=== PATIENT | female | born 1975 | race Caucasian/White ===

== ENCOUNTER → 2016-05-02 | Outpatient (CLI) | payer BC ==
[~2016-05-02] MED LIST: ACHYD1T PO; DCS100C PO; IBP800T PO; NITR100C3 PO; OXYC-12 PO; PANT20TA2 PO; PREN1TAB39 PO; SUCR1TAB23 PO; TRAM50TA2 PO
--- NOTE | 2016-05-02 15:55 | Diagnostic Imaging Report ---
INDICATION: Pelvic pain. TECHNIQUE: Multiple real time good scale sonographic images were obtained of the pelvis transabdominally and endovaginally. CORRELATION STUDY: None. FINDINGS: UTERUS/ENDOMETRIUM: Uterus measures 8.0 x 4.5 x 4.3 cm. The uterus has an unremarkable appearance. The endometrium is normal in thickness measuring 4 mm. RIGHT OVARY: Not visualized. LEFT OVARY: Not visualized. The ovaries cannot be visualized on either transabdominal and/or endovaginal imaging. This may be owing to location of the ovaries, overlying bowel gas, or on a technical basis. No definitive abnormal adnexal mass lesion on limited assessment. No significant free pelvic fluid. IMPRESSION: 1. Uterus and endometrium are unremarkable. 2. Ovaries were unable to be visualized on either transabdominal or endovaginal imaging. Dictated by: Dictated on workstation # [id number]
== END ==
LOC: RAD 14:05
PROVIDERS: ATTEND Obstetrics & Gynecology
DX: N94.19 Other specified dyspareunia (principal); R10.2 Pelvic and perineal pain; N93.8 Other specified abnormal uterine and vaginal bleeding
CPT/HCPCS: 76830; 76856

== ENCOUNTER 2016-08-09 13:33 | Outpatient (CLI) | payer BC ==
[~2016-08-09] VITALS: Ht 154.9 cm; Wt 98.4 kg
[2016-08-09 13:38] VITALS: BP 132/79
[2016-08-09] MEDS ORDERED: TOPI50TA37 PO (14:11)
[2016-08-09] MEDS ORDERED: SERT50TA2 PO (14:11)
[2016-08-09] MEDS ORDERED: ALPR1TAB2 PO (14:11)
[2016-08-09 14:12] LABS: BASOPHILS # (AUTO) 0.1 10^3/uL (0.0-0.1); BASOPHILS % (AUTO) 1 % (0-10); EOSINOPHILS # (AUTO) 0.2 10^3/uL (0.0-0.3); EOSINOPHILS % (AUTO) 2 % (0-10); LYMPHOCYTES # (AUTO) 3.8 X 10^3 (1.0-4.0); LYMPHOCYTES % (AUTO) 39 % (12-44); MEAN CORPUSCULAR HEMOGLOBIN 30 PG (25-34); MEAN CORPUSCULAR HGB CONC 33 G/DL (32-36); MEAN CORPUSCULAR VOLUME 91 FL (80-99); MEAN PLATELET VOLUME 9.9 FL (7.4-10.4); MONOCYTES # (AUTO) 0.7 X 10^3 (0.0-1.0); MONOCYTES % (AUTO) 8 % (0-12); NEUTROPHILS # (AUTO) 4.9 X 10^3 (1.8-7.8); NEUTROPHILS % (AUTO) 51 % (42-75); PLATELET COUNT 344 10^3/uL (130-400); RED BLOOD COUNT 4.35 10^6/uL (4.35-5.85); RED CELL DISTRIBUTION WIDTH 12.8 % (10.0-14.5); WHITE BLOOD COUNT 9.6 10^3/uL (4.3-11.0)
== END 2016-08-09 14:00 | disposition home or self-care (01) ==
LOC: PREOP 13:33
PROVIDERS: ATTEND Obstetrics & Gynecology
DX: Z01.818 Encounter for other preprocedural examination (principal); Z11.2 Encounter for screening for other bacterial diseases; N80.8 Other endometriosis; N81.10 Cystocele, unspecified; R10.2 Pelvic and perineal pain
CPT/HCPCS: 36415; 85025; 86850; 86900; 86901; 87081

== ENCOUNTER 2016-08-15 06:00 | Day surgery (SDC) | payer BC ==
[~2016-08-15] VITALS: Ht 154.9 cm; Wt 98.4 kg
[~2016-08-15 06:00] MED LIST changes: +ALPR1TAB2 PO; +SERT50TA2 PO; +TOPI50TA37 PO
[2016-08-15 06:25] VITALS: BP 148/79
[2016-08-15] MEDS ORDERED: ONDANSETRON 4 MG/2 ML (SDV) Z0FRAN ONE ×2 (06:37→06:41)
[2016-08-15] MEDS ORDERED: DEXAMETHASONE PF 10 MG/ML (DECADRON) VIAL ONE (06:37)
[2016-08-15] MEDS ORDERED: fentaNYL INJECTION 100 MCG/2 ML AMP ONE (06:37)
[2016-08-15] MEDS ORDERED: LIDOCAINE PF 2% 5 ML (XYLOCAINE) VIAL ONE (06:37)
[2016-08-15] MEDS ORDERED: ROCURONIUM 50 MG/5 ML (ZEMURON) VIAL IV ONE (06:37)
[2016-08-15] MEDS ORDERED: proPOfol 200 MG/20 ML (DIPRIVAN) VIAL IV ONE (06:37)
[2016-08-15] MEDS ORDERED: metroNIDAZOLE 500MG/100ML IVPB 100 ML ONE (06:41)
[2016-08-15] MEDS ORDERED: SCOPOLAMINE 1.5 MG (TRANSDERM-SCOP) PATCH ONE (06:41)
[2016-08-15] MEDS ORDERED: MIDAZOLAM 2 MG/2 ML (VERSED) VIAL ONE (06:41)
[2016-08-15] MEDS ORDERED: ceFAZolin 2 GM/50 ML NS 50 ML ONE (06:42)
[2016-08-15] MEDS ORDERED: FAMOTIDINE 20MG/2ML IV (PEPCID) ONE (06:42)
[2016-08-15] MEDS ORDERED: SEVOFLURANE (ULTANE) 15 ML INHAL SOLN ONE ×7 (06:48→09:11)
[2016-08-15] MEDS: LACTATED RINGERS 1,000 ML IV PRN ×2 (06:58→07:35)
[2016-08-15] MEDS ORDERED: ceFAZolin 2 GM/NS 50 ML IV ONE (07:00)
[2016-08-15] MEDS ORDERED: SCOPOLAMINE 1.5 MG (TRANSDERM-SCOP) PATCH TOP ONE (07:00)
[2016-08-15] MEDS ORDERED: MIDAZOLAM 2 MG/2 ML (VERSED) VIAL IV ONE (07:00)
[2016-08-15] MEDS ORDERED: FAMOTIDINE 20MG/2ML IV (PEPCID) IV ONE (07:00)
[2016-08-15] MEDS ORDERED: ONDANSETRON 4 MG/2 ML (SDV) Z0FRAN IV ONE (07:00)
[2016-08-15] MEDS ORDERED: metroNIDAZOLE 500 MG/100 ML IVPB (PRE-MIX) IV ONE (07:00)
[2016-08-15] MEDS ORDERED: BUPIVACAINE 0.25% 30 ML (SENSORCAINE) VIAL ONE (07:01)
[2016-08-15] MEDS ORDERED: VASOPRESSIN INJECTION 20 UNIT/ML VIAL ONE (07:03)
[2016-08-15] MEDS ORDERED: NS (IVPB) 100 ML ONE (07:03)
[2016-08-15] MEDS ORDERED: ESTROGENS CONJ. CREAM 30 GM (PREMARIN) TUBE ONE (07:03)
--- NOTE | 2016-08-15 07:07 | Progress Note-Pre Operative ---
Pre-Operative Progress Note H&P Reviewed The H&P was reviewed, patient examined and no changes noted. Date Seen by Provider: Aug 15, 2016 Time Seen by Provider: 07:06 Date H&P Reviewed: Aug 15, 2016 Time H&P Reviewed: 07:05 Pre-Operative Diagnosis: CPP, Endometriosis, Cystocele BETHANY RAMOS DO Aug 15, 2016 7:07 am
[2016-08-15] MEDS ORDERED: morphine INJ 10 MG/ML 1ML (SYR OR VIAL) ONE (09:04)
[2016-08-15] MEDS ORDERED: KETOROLAC 30 MG/ML VIAL ONE (09:04)
--- NOTE | 2016-08-15 09:13 | Discharge Inst-Women's Service ---
Discharge Inst-Women's Serv Depart Medication/Instructions New, Converted or Re-Newed RX: RX on Chart Consults/Follow Up Additional Follow Up: Yes Activity Activity: Activity as Tolerated Driving Instructions: No Driving for 1 Week NO SMOKING: NO SMOKING Nothing Inside Vagina: No Douching, No [place], No Tampons Diet Discharge Diet: No Restrictions Symptoms to Report to : Bleeding Excessive, Pain Increased, Fever Over 101 Degrees F, Vaginal Bleeding Increase, Questions/Concerns For Any Problems or Questions: Contact Your Physician Skin/Wound Care Infection Signs and Symptoms: Increased Redness, Foul Odor of Wound, Increased Drainage, Skin Itchy or Has a Rash, Increased Swelling, Temperature Above 101 F Operative Area Clean and Dry: Keep Incision Clean/Dry Stitches/[place]/Dermabond: Dermabond, Care of Stitches Bathing Instructions: Shower (x 3 weeks) BETHANY RAMOS DO Aug 15, 2016 9:13 am
[2016-08-15] MEDS ORDERED: CHLORASEPTIC LOZENGE MM PRN (09:15)
[2016-08-15] MEDS ORDERED: ONDANSETRON 4 MG/2 ML (SDV) Z0FRAN IVP PRN (09:15)
[2016-08-15] MEDS ORDERED: ZOLPIDEM 5 MG (AMBIEN) TAB PO PRN (09:15)
[2016-08-15] MEDS ORDERED: ANTACID SUSP 30 ML UDC (MYLANTA) PO PRN (09:15)
[2016-08-15] MEDS ORDERED: HYDR-3816 PO (09:26)
[2016-08-15] MEDS ORDERED: DOCU100C37 PO (09:26)
[2016-08-15] MEDS ORDERED: IBUP-1773 PO (09:26)
[2016-08-15] MEDS ORDERED: SIME80TA16 PO (09:26)
[2016-08-15] MEDS: morphine INJ 10 MG/ML 1ML (SYR OR VIAL) IVP PRN ×2 (09:30→09:34)
[2016-08-15] MEDS: KETOROLAC 30 MG/ML VIAL IV PRN ×3 (09:36→23:59)
--- NOTE | 2016-08-15 09:39 | Progress Note-Post Operative ---
Post-Operative Progess Note Surgeon (s)/Aerospace Engineer Officer Armament (s) Surgeon BETHANY RAMOS DO Aerospace Engineer Officer Armament: Lakshmi Kelley Pre-Operative Diagnosis CPP, Endometriosis, Cystocele Post-Operative Diagnosis same Procedure & Operative Findings Date of Procedure 08/15/16 Procedure Performed/Findings Urine output 50 ML's Fluids 1400 mL lactate Ringer's solution Findings: A normal-size uterus is hyperemic with dense anterior cul-de-sac adhesions. Grossly normal-appearing bilateral ovaries. Grade 2 cystocele Procedure in detail: The patient taken the operating room where general anesthesia was found to be adequate. She is placed in dorsal lithotomy position prepped and draped in normal sterile fashion. She is first examined under anesthesia the uterus is fixed anteverted, no adnexal masses are appreciated. A weighted speculum was inserted patient's vagina after Justin catheter is placed using sterile technique. A right angle retractor is used to visualize the cervix. This grasped at the 12 o'clock position using a long Allis clamp. A 0 Vicryl sutures placed the anterior lip of the cervix and uses my retraction point. The Allises removed. I didn't send uterine cavity depth which is found to be 8 cm. I selected a 8 cm Rukhsana uterine manipulator tip, and a 3 cm colpotomy ring. The remaining is and placed into the endometrial cavity the balloon was deployed and the colpotomy ring is advanced around the vaginal fornix. I then removal all of the other instruments from the patient's vagina and taken back into the abdomen where infraumbilically I infiltrated 0 using quarter percent Marcaine and make an 8 mm incision using the knife. I directed varies needle through this incision until intraperitoneal placement was confirmed using a saline drop test. An opening pressure of 4 mmHg is noted using CO2 gas I insufflate the peritoneal cavity to a pressure of 15 mmHg at which point I removed the varies needle and introduce an 8 mm blunt da Vicente camera trocar. Once this is in place unable to confirm intraperitoneal placement using the da Vicente laparoscope. I then had the patient placed in steep Trendelenburg and am able to visualize all of the adequate structures to perform the procedure as planned. There is no evidence of damage upon my entry site. I then direct 2 more trochars through the abdominal wall using both 8 mm trochars placed approximately 10 cm lateral to my infraumbilical trocar. Incisions are made using the knife, and the trochars are directed under direct visualization of the laparoscope. Once these are in place I bring in the da Vicente robot and docked in appropriate fashion. I placed the vessel sealer and the left and monopolar viktor in the right hand. I then performed the following dissection bilaterally. Starting at the IP ligament I bipolar cauterized this and transected using the vessel sealer. I then grasped the round ligament bipolar cauterized this and transected using the vessel sealer. Anatomy able to grasp the entire broad ligament bipolar cauterized and transected using the vessel sealer down to the level of the lower uterine segment. At this point a separate anterior posterior leaflets, the anterior leaf was taken around to the anterior vaginal fornix, and the posterior leaflets taken onto the posterior vaginal fornix. This allows me to visualize the uterine vessels laterally which I bipolar cauterized and transected using the vessel sealer. I did perform a colpotomy at the 12 o'clock position using monopolar viktor were unable to visualize the Rukhsana colpotomy ring. I take this incision circumferentially around the colpotomy ring using the monopolar viktor amputating the cervix with the vaginal fornix. The entire specimen was then removed through the vagina. I then proceeded to closing the vaginal cuff and the lateral vaginal apices i use 2-0 Vicryl suture in a [id number] fashion couple suspending them to the uterosacral ligaments. I then closed the remainder the vaginal cuff using 20V lock in a running fashion. There is no active bleeding noted from any my dissection planes at which point I undocked the da Vicente robot and proceed with the remainder of the case laparoscopically. Once again I copiously irrigated the pelvis using normal saline as no active bleeding noted I placed FloSeal hemostatic agent overall my planes of dissection to ensure excellent postoperative hemostasis. I then had the patient flattened out and remove the lateral trochars under direct visualization of the laparoscope. The infraumbilical trocar is used to release insufflation, and introduce 10 mL's of 0.25% Marcaine into the peritoneal cavity for postoperative pain management. The skin incisions are then closed using 4-0 Monocryl and interrupted subcuticular stitches and Dermabond and Band- Aids are placed over these. I then take my attention to the pelvis where there is still significant cystocele. I infiltrated the margins of the cystocele using vasopressin a concentration of 20 ML's and 100 mL's of normal saline, I then make an incision at the bladder neck getting just beneath the submucosa. I then used Metzenbaum scissors to go down the midline of the cystocele defect and undermined this tissue staying clear of the bladder. I then take this incision down the midline. This allows me to bluntly dissect the vesicovaginal fascia off of the submucosa of the underlying tissue. I then used plicating 2-0 Vicryl sutures in interrupted fashion reducing the remaining cystocele. I trimmed the excess vaginal mucosa and closed the mucosa using 3-0 Vicryl suture in a running locked fashion. The vagina is in packed using Premarin-soaked vaginal packing. Justin catheter was left in place. 2 g of Ancef and 500 mg of Flagyl given preoperatively for infection prophylaxis. The patient tolerated the procedure well as taken to recovery in stable condition. Lap and sponge count is correct at end of the procedure, instrument count is correct as well. Anesthesia Type GETA Estimated Blood Loss Estimated blood loss (mL): 50 Specimens/Packing Specimens Removed uterus tubes ovaries RICHARDBETHANY Haresh CLAUDIO Aug 15, 2016 9:39 am
--- OUTSIDE RECORDS SUMMARY | 2016-08-15 10:19 | XMS REPORT ---
Author Author CECI CROUCH Organization [employer] Address Unknown Phone Unavailable Care Team Providers Care Health Navigator Name Role Phone CECI CROUCH CP Unavailable Allergies, Adverse Reactions, Alerts Substance Reaction Event Type N.K.D.A. Info Not Available Non Drug Allergy Problems Problem Type Condition Code Onset Dates Condition Status Assessment Dental examination Z01.20 Active Medications Medication Code System Code Instructions Start Date End Date Status Dosage [facility] [address]-48 5-325 MG Orally every 6 hrs Nov 24, 2014 Nov 28, 2014 1 tablet as needed Procedures Procedure Coding System Code Date INTRAORL-PERIAPICAL 1 FILM 44382 CPT-4 D0220 Nov 24, 2014 BITEWING - SINGLE FILM CPT-4 D0270 Nov 24, 2014 LTD ORAL EVALUATION - PROBLEM FOCUS CPT-4 D0140 Nov 24, 2014 EXTRAC ERUPTED TOOTH/EXPOSED ROOT CPT-4 D7140 Nov 24, 2014 Vital Signs Date/Time: Nov 24, 2014 Blood Pressure Diastolic 91 mmHg Blood Pressure Systolic 132 mmHg Results No Known Results Summary Purpose [employer] Submission
--- OUTSIDE RECORDS SUMMARY | 2016-08-15 10:19 | XMS REPORT | Continuity of Care Document ---
Author Author [facility] Organization [facility] Address Unknown Phone Unavailable Allergies Active Description Code Type Severity Reaction Onset Reported/Identified Relationship to Patient Clinical Status Yes Penicillins [id number] Drug Allergy Unknown N/A 06/19/2011 Medications Problems Date Dx Coded Attending Type Code Diagnosis Diagnosed By 05/22/2011 Ot 644.03 THRT KRANTHI LABOR-ANTEPART 06/22/2011 Ot 530.81 ESOPHAGEAL REFLUX 06/22/2011 Ot 644.21 EARLY ONSET DELIVERY-DEL 06/22/2011 Ot 648.91 OTH CURR COND-DELIVERED 06/22/2011 Ot 654.21 PREV DELIVRY W/ OR W/O MENT ANT 06/22/2011 Ot 782.1 NONSPECIF SKIN ERUPT NEC 06/22/2011 Ot V06.1 [id number], COMBINED [ 06/22/2011 Ot V27.0 DELIVER-SINGLE LIVEBORN 08/11/2013 MANISH RIOS, DAVE Ureña Ot 786.50 CHEST PAIN NOS 08/11/2013 MANISH RIOS, DAVE Ureña Ot 789.00 ABDOMINAL PAIN, UNSPECIFIED SITE 04/06/2014 Ot 455.0 INT HEMORRHOID W/O COMPL 04/06/2014 Ot 530.11 REFLUX ESOPHAGITIS 04/06/2014 Ot 535.50 UNSP GASTRITIS GASTRODUODENITIS W/O ME 04/06/2014 Ot 553.3 DIAPHRAGMATIC HERNIA 04/06/2014 Ot 569.3 RECTAL ANAL HEMORRHAGE 04/28/2014 Ot 575.11 CHRONIC CHOLECYSTITIS 04/28/2014 Ot 575.6 GB CHOLESTEROLOSIS 05/03/2014 Ot 518.0 PULMONARY COLLAPSE 05/03/2014 Ot 786.50 CHEST PAIN NOS 05/27/2014 Ot 575.8 05/27/2014 Ot 575.8 05/27/2014 Ot V72.63 05/27/2014 Ot V74.8 05/27/2014 Ot 786.05 05/27/2014 Ot 786.50 06/07/2014 KIMBER SMITH MD Ot V72.84 06/29/2014 Ot 786.05 06/29/2014 Ot 786.50 06/29/2014 Ot 786.05 06/29/2014 Ot 786.50 06/29/2014 Ot 575.8 08/10/2014 Ot 786.05 08/10/2014 Ot 786.50 08/10/2014 Ot 575.8 08/15/2014 Ot 575.8 08/15/2014 Ot 786.05 08/15/2014 Ot 786.50 02/20/2015 Ot 785.1 02/20/2015 Ot 780.4 02/20/2015 Ot 785.1 02/20/2015 Ot 786.50 02/20/2015 Ot 729.5 02/20/2015 SAMANTHA RIOS, LORI Nuñez Ot 789.06 02/20/2015 KIMBER SMITH MD Ot V72.84 02/20/2015 Ot 575.8 02/20/2015 Ot 575.8 02/20/2015 Ot V72.63 02/20/2015 Ot V74.8 02/20/2015 Ot 786.05 02/20/2015 Ot 786.50 12/25/2015 Ot 785.1 PALPITATIONS 12/25/2015 Ot 780.4 DIZZINESS AND GIDDINESS 12/25/2015 Ot 785.1 PALPITATIONS 12/25/2015 Ot 786.50 CHEST PAIN NOS 12/25/2015 Ot 729.5 PAIN IN LIMB 12/25/2015 SAMANTHA RIOS, LORI Nuñez Ot 789.06 ABDOMINAL PAIN, EPIGASTRIC 12/25/2015 LUIS RIOS, KIMBER Ot V72.84 EXAM PRE-OPERATIVE NOS 12/25/2015 Ot 575.8 DIS OF GALLBLADDER NEC 12/25/2015 Ot 575.8 DIS OF GALLBLADDER NEC 12/25/2015 Ot V72.63 PRE-PROCEDURAL LABORATORY EXAMINATION 12/25/2015 Ot V74.8 SCREEN-BACTERIAL DIS NEC 12/25/2015 Ot 786.05 SHORTNESS OF BREATH 12/25/2015 Ot 786.50 CHEST PAIN NOS 03/09/2016 Ot 785.1 PALPITATIONS 03/09/2016 Ot 780.4 DIZZINESS AND GIDDINESS 03/09/2016 Ot 785.1 PALPITATIONS 03/09/2016 Ot 786.50 CHEST PAIN NOS 03/09/2016 Ot 729.5 PAIN IN LIMB 03/09/2016 OLRI SINGH MD Ot 789.06 ABDOMINAL PAIN, EPIGASTRIC 03/09/2016 KIMBER SMITH MD Ot V72.84 EXAM PRE-OPERATIVE NOS 03/09/2016 Ot 575.8 DIS OF GALLBLADDER NEC 03/09/2016 Ot 575.8 DIS OF GALLBLADDER NEC 03/09/2016 Ot V72.63 PRE-PROCEDURAL LABORATORY EXAMINATION 03/09/2016 Ot V74.8 SCREEN-BACTERIAL DIS NEC 03/09/2016 Ot 786.05 SHORTNESS OF BREATH 03/09/2016 Ot 786.50 CHEST PAIN NOS 03/11/2016 Ot 785.1 PALPITATIONS 03/11/2016 Ot 780.4 DIZZINESS AND GIDDINESS 03/11/2016 Ot 785.1 PALPITATIONS 03/11/2016 Ot 786.50 CHEST PAIN NOS 03/11/2016 Ot 729.5 PAIN IN LIMB 03/11/2016 SAMANTHA RIOS, LORI Nuñez Ot 789.06 ABDOMINAL PAIN, EPIGASTRIC 03/11/2016 KIMBER SMITH MD Ot V72.84 EXAM PRE-OPERATIVE NOS 03/11/2016 Ot 575.8 DIS OF GALLBLADDER NEC 03/11/2016 Ot 575.8 DIS OF GALLBLADDER NEC 03/11/2016 Ot V72.63 PRE-PROCEDURAL LABORATORY EXAMINATION 03/11/2016 Ot V74.8 SCREEN-BACTERIAL DIS NEC 03/11/2016 Ot 786.05 SHORTNESS OF BREATH 03/11/2016 Ot 786.50 CHEST PAIN NOS 03/15/2016 Ot 785.1 PALPITATIONS 03/15/2016 Ot 780.4 DIZZINESS AND GIDDINESS 03/15/2016 Ot 785.1 PALPITATIONS 03/15/2016 Ot 786.50 CHEST PAIN NOS 03/15/2016 Ot 729.5 PAIN IN LIMB 03/15/2016 LORI SINGH MD Ot 789.06 ABDOMINAL PAIN, EPIGASTRIC 03/15/2016 KIMBER SMITH MD Ot V72.84 EXAM PRE-OPERATIVE NOS 03/15/2016 Ot 575.8 DIS OF GALLBLADDER NEC 03/15/2016 Ot 575.8 DIS OF GALLBLADDER NEC 03/15/2016 Ot V72.63 PRE-PROCEDURAL LABORATORY EXAMINATION 03/15/2016 Ot V74.8 SCREEN-BACTERIAL DIS NEC 03/15/2016 Ot 786.05 SHORTNESS OF BREATH 03/15/2016 Ot 786.50 CHEST PAIN NOS 03/21/2016 Ot 785.1 PALPITATIONS 03/21/2016 Ot 780.4 DIZZINESS AND GIDDINESS 03/21/2016 Ot 785.1 PALPITATIONS 03/21/2016 Ot 786.50 CHEST PAIN NOS 03/21/2016 Ot 729.5 PAIN IN LIMB 03/21/2016 LORI SINGH MD Ot 789.06 ABDOMINAL PAIN, EPIGASTRIC 03/21/2016 LUIS RIOS, KIMBER Ot V72.84 EXAM PRE-OPERATIVE NOS 03/21/2016 Ot 575.8 DIS OF GALLBLADDER NEC 03/21/2016 Ot 575.8 DIS OF GALLBLADDER NEC 03/21/2016 Ot V72.63 PRE-PROCEDURAL LABORATORY EXAMINATION 03/21/2016 Ot V74.8 SCREEN-BACTERIAL DIS NEC 03/21/2016 Ot 786.05 SHORTNESS OF BREATH 03/21/2016 Ot 786.50 CHEST PAIN NOS 05/02/2016 FENECH DO, BETHANY S Ot N93.8 OTHER SPECIFIED ABNORMAL UTERINE AND VAG 05/02/2016 FENECH DO, BETHANY S Ot N94.19 OTHER SPECIFIED DYSPAREUNIA 05/02/2016 FENECH DO, BETHANY S Ot R10.2 PELVIC AND PERINEAL PAIN 05/03/2016 FENECH DO, BETHANY S Ot N93.8 OTHER SPECIFIED ABNORMAL UTERINE AND VAG 05/03/2016 FENECH DO, BETHANY S Ot N94.19 OTHER SPECIFIED DYSPAREUNIA 05/03/2016 FENECH DO, BETHANY S Ot R10.2 PELVIC AND PERINEAL PAIN 05/15/2016 FENECH DO, BETHANY S Ot N93.8 OTHER SPECIFIED ABNORMAL UTERINE AND VAG 05/15/2016 FENECH DO, BETHANY S Ot N94.19 OTHER SPECIFIED DYSPAREUNIA 05/15/2016 HARPREETECH DO, BETHANY S Ot R10.2 PELVIC AND PERINEAL PAIN 08/08/2016 Ot 785.1 PALPITATIONS 08/08/2016 Ot 780.4 DIZZINESS AND GIDDINESS 08/08/2016 Ot 785.1 PALPITATIONS 08/08/2016 Ot 786.50 CHEST PAIN NOS 08/08/2016 Ot 729.5 PAIN IN LIMB 08/08/2016 LORI SINGH MD Ot 789.06 ABDOMINAL PAIN, EPIGASTRIC 08/08/2016 LUIS RIOS, KIMBER Ot V72.84 EXAM PRE-OPERATIVE NOS 08/08/2016 Ot 575.8 DIS OF GALLBLADDER NEC 08/08/2016 Ot 575.8 DIS OF GALLBLADDER NEC 08/08/2016 Ot V72.63 PRE-PROCEDURAL LABORATORY EXAMINATION 08/08/2016 Ot V74.8 SCREEN-BACTERIAL DIS NEC 08/08/2016 Ot 786.05 SHORTNESS OF BREATH 08/08/2016 Ot 786.50 CHEST PAIN NOS 08/08/2016 HARPREETGUSTAVO CLAUDIO BETHANY Haresh Ot N93.8 OTHER SPECIFIED ABNORMAL UTERINE AND VAG 08/08/2016 HARPREETBETHANY CHEN DO Ot N94.19 OTHER SPECIFIED DYSPAREUNIA 08/08/2016 HARPREETGUSTAVO CLAUDIO BETHANY Haresh Ot R10.2 PELVIC AND PERINEAL PAIN Procedures Code Description Performed By Performed On 74.1 LOW CERVICAL 06/19/2011 Results Test Result Range Complete blood count (CBC) with automated white blood cell (WBC) differential - 08/09/16 13:52 Blood leukocytes automated count (number/volume) 9.6 10*3/ uL 4.3-11.0 Blood erythrocytes automated count (number/volume) 4.35 10*6 /uL 4.35-5.85 Venous blood hemoglobin measurement (mass/volume) 13.2 g/dL 11.5-16.0 Blood hematocrit (volume fraction) 40 % 35-52 Automated erythrocyte mean corpuscular volume 91 [foz_us] 80-99 Automated erythrocyte mean corpuscular hemoglobin (mass per erythrocyte) 30 pg 25-34 Automated erythrocyte mean corpuscular hemoglobin concentration measurement ( mass/volume) 33 g/dL 32-36 Automated erythrocyte distribution width ratio 12.8 % 10.0-14.5 Automated blood platelet count (count/volume) 344 10*3/uL 130-400 Automated blood platelet mean volume measurement 9.9 [foz_us ] 7.4-10.4 Automated blood neutrophils/100 leukocytes 51 % 42-75 Automated blood lymphocytes/100 leukocytes 39 % 12-44 Blood monocytes/100 leukocytes 8 % 0-12 Automated blood eosinophils/100 leukocytes 2 % 0-10 Automated blood basophils/100 leukocytes 1 % 0-10 Blood neutrophils automated count (number/volume) 4.9 10*3 1.8-7.8 Blood lymphocytes automated count (number/volume) 3.8 10*3 1.0-4.0 Blood monocytes automated count (number/volume) 0.7 10*3 0.0-1.0 Automated eosinophil count 0.2 10*3/uL 0.0-0.3 Automated blood basophil count (count/volume) 0.1 10*3/uL 0.0-0.1 Blood type T Indirect antibody screen panel - 08/09/16 13:52 ABO+Rh group AP NRG Blood group antibody screen NEGATIVE NRG Methicillin resistant Staphylococcus aureus (MRSA) screening culture - 13:52 MRSA SCREEN RESULT MRSA ISOLATED NRG Encounters ACCT No. Visit Date/Time Discharge Status Pt. Type Provider Facility Loc./Unit Complaint [id number] 08/09/2016 13:33:00 2016 14:00:00 DIS Outpatient BETHANY RAMOS DO [facility] PREOP ROBOTIC HYST [id number] 03/31/2014 06:14:00 2014 23:59:59 CLS Outpatient KIMBER SMITH MD [facility] PREOP ABD PAIN; BLOOD IN STOOLS [id number] 08/17/2013 09:57:00 2013 23:59:59 CLS Outpatient LORI SIGNH MD [facility] RAD EPIGASTRIC PAIN [id number] 08/11/2013 17:42:00 2013 19:46:00 DIS Emergency DAVE HAMMOND MD [facility] ER CHEST PAIN [id number] 08/15/2016 07:30:00 PEN Preadmit BETHANY RAMOS DO [facility] SDC CHRONIC PELVIC PAIN, ENDOMETRIOSIS, CYSTOCELE [id number] 05/02/2016 14:05:00 ACT Outpatient BETHANY RAMOS DO [facility] RAD AUB,ACUTE PELVIC PAIN [id number] 05/27/2014 17:02:00 Document Registration [id number] 05/03/2014 18:00:00 Document Registration [id number] 04/28/2014 09:00:00 Document Registration [id number] 04/21/2014 14:06:00 Document Registration [id number] 04/19/2014 09:24:00 Document Registration [id number] 04/06/2014 08:05:00 Document Registration [id number] 06/28/2011 10:36:00 Document Registration [id number] 06/19/2011 08:19:00 Document Registration [id number] 05/22/2011 15:14:00 Document Registration [id number] 03/20/2011 10:31:00 Document Registration [id number] 02/27/2011 14:40:00 Document Registration
[2016-08-15 10:20] VITALS: BP 109/70
[2016-08-15 10:50] VITALS: BP 106/68
[2016-08-15] MEDS: ONDANSETRON 4 MG/2 ML (SDV) Z0FRAN IV PRN (11:07)
[2016-08-15] MEDS ORDERED: PROMETHAZINE INJ 25 MG/ML (PHENERGAN) AMP ONE (11:36)
[2016-08-15] MEDS ORDERED: HYDROmorphone (DILAUDID) 2 MG/ML VIAL IVP PRN (11:45)
[2016-08-15] MEDS ORDERED: PROMETHAZINE INJ 25 MG/ML (PHENERGAN) AMP IVP ONE (12:00)
[2016-08-15] MEDS: LACTATED RINGERS 1,000 ML IV SCH ×2 (13:35→21:50)
[2016-08-15 16:16] VITALS: BP 101/52
[2016-08-15] MEDS: HYDROcodone/APAP 7.5 MG/325 MG (LORTAB, LORCET PLUS) TABLET PO PRN ×2 (17:58→20:59)
[2016-08-15] MEDS: DOCUSATE SODIUM 100 MG (COLACE) CAP PO PRN (20:59)
[2016-08-15 21:00] VITALS: BP 110/60
[2016-08-16] VITALS: BP 100/61
[2016-08-16] MEDS ORDERED: KETOROLAC 30 MG/ML VIAL ONE (05:06)
[2016-08-16 05:15] VITALS: BP 111/66
[2016-08-16] MEDS: ONDANSETRON 4 MG/2 ML (SDV) Z0FRAN IV PRN (06:05)
[2016-08-16] MEDS: SIMETHICONE 80 MG (MYLICON) CHEW PO PRN (06:06)
[2016-08-16 08:20] VITALS: BP 114/72
[2016-08-16] MEDS: HYDROcodone/APAP 7.5 MG/325 MG (LORTAB, LORCET PLUS) TABLET PO PRN ×3 (08:27→21:23)
[2016-08-16] MEDS: DOCUSATE SODIUM 100 MG (COLACE) CAP PO PRN ×2 (08:27→21:23)
--- NOTE | 2016-08-16 09:19 | Anesthesia-General Post-Op ---
General Patient Condition Mental Status/LOC: Same as Preop Cardiovascular: Satisfactory Nausea/Vomiting: Absent Respiratory: Satisfactory Pain: Controlled Complications: Absent Post Op Complications Complications None Follow Up Care/Instructions Patient Instructions None needed. Anesthesia/Patient Condition Patient Condition Patient is doing well, no complaints, stable vital signs, no apparent adverse anesthesia problems. No complications reported per nursing. [place] [facility] [place] No CHRISTINE BRITO CRNA Aug 16, 2016 09:19
[2016-08-16] MEDS ORDERED: BETHANECHOL 25 MG (URECHOLINE) TAB PO NR (09:45)
[2016-08-16] MEDS: IBUPROFEN 600 MG (MOTRIN) TAB PO PRN (11:21)
[2016-08-16 12:40] VITALS: BP 128/78
[2016-08-16 19:00] VITALS: BP 116/75
[2016-08-16 20:25] VITALS: BP 123/62
[2016-08-16] MEDS ORDERED: BETHANECHOL 10 MG (URECHOLINE) TAB ONE (21:17)
[2016-08-16] MEDS: BETHANECHOL 10 MG (URECHOLINE) TAB PO SCH (21:23)
[2016-08-17 00:10] VITALS: BP 121/76
[2016-08-17] MEDS: IBUPROFEN 600 MG (MOTRIN) TAB PO PRN ×2 (00:17→12:59)
[2016-08-17 04:05] VITALS: BP 94/62
[2016-08-17] MEDS ORDERED: BETHANECHOL 10 MG (URECHOLINE) TAB ONE (06:38)
[2016-08-17] MEDS: BETHANECHOL 10 MG (URECHOLINE) TAB PO SCH (06:52)
--- NOTE | 2016-08-17 08:18 | Progress Note-Standard ---
Standard Progress Note Progress Notes/Assess & Plan Date Seen by Provider: Aug 17, 2016 Time Seen by Provider: 08:15 Progress/Assessment & Plan Patient was ordered for discharge yesterday, however, after felipe removed she was unable to void. Attempts were made by giving bethacholine, and PVR still remained about 200 and one time was as high as 450. Otherwise the patient is doing well, pain well controlled. Ambulating and eating without difficulty. Vital Sign - Last 24 Hours 08/16/16 08/16/16 08/16/16 08/16/16 08:20 12:40 19:00 20:25 Temp 98.7 98.3 97.8 97.9 Pulse 95 93 97 92 Resp 18 20 20 17 B/P (MAP) 114/72 128/78 116/75 123/62 Pulse Ox 97 99 99 95 O2 Delivery Room Air Room Air Room Air Room Air 08/17/16 08/17/16 00:10 04:05 Temp 98.9 97.0 Pulse 95 70 Resp 18 18 B/P (MAP) 121/76 94/62 Pulse Ox 94 96 O2 Delivery Room Air Room Air Intake and Output 08/16/16 08/16/16 08/17/16 15:00 23:00 07:00 Intake Total 1000 ml 700 ml Output Total 175 ml 1550 ml Balance 825 ml -850 ml Incisions: c/d/i Urine in catheter this morning is clear Scant vaginal bleeding Diagnosis: PO from [facility] with BSO and Ant colporraphy PO urinary retention BMI 41 P: Bethachol 10 mg TID x 5 days, and patient given urinary retention precautions Continue routine PO precautions Will plan for dc today pending normal PVRs BETHANY RAMOS DO Aug 17, 2016 8:18 am
[2016-08-17] MEDS ORDERED: BETH10TA PO (08:19)
[2016-08-17] MEDS: HYDROcodone/APAP 7.5 MG/325 MG (LORTAB, LORCET PLUS) TABLET PO PRN ×2 (09:02→15:02)
[2016-08-17] MEDS: DOCUSATE SODIUM 100 MG (COLACE) CAP PO PRN (09:02)
[2016-08-17 09:05] VITALS: BP 126/77
[2016-08-17] MEDS ORDERED: BETHANECHOL 10 MG (URECHOLINE) TAB PO SCH (11:57)
[2016-08-17] MEDS: SIMETHICONE 80 MG (MYLICON) CHEW PO PRN (12:59)
[2016-08-17 13:00] VITALS: BP 119/79
== END 2016-08-17 18:07 | disposition home or self-care (01) ==
LOC: SDC 06:00 → WS 10:20 → SDC 08-17 18:07
PROVIDERS: ATTEND Obstetrics & Gynecology
DX: N80.8 Other endometriosis (principal); N81.10 Cystocele, unspecified; R10.2 Pelvic and perineal pain; N73.6 Female pelvic peritoneal adhesions (postinfective); N83.201 Unspecified ovarian cyst, right side; N83.202 Unspecified ovarian cyst, left side; N83.8 Other noninflammatory disorders of ovary, fallopian tube and broad ligament; F41.9 Anxiety disorder, unspecified; F32.9 Major depressive disorder, single episode, unspecified; Z79.899 Other long term (current) drug therapy
CPT/HCPCS: 84703; 88307; 94664; 96361; 96375; 96376

== ENCOUNTER → 2016-09-11 | Outpatient (CLI) | payer BC, OTHER ==
[~2016-09-11] MED LIST changes: +BETH10TA PO; +DOCU100C37 PO; +HYDR-3816 PO; +IBUP-1773 PO; +SIME80TA16 PO
--- NOTE | 2016-09-11 13:53 | Diagnostic Imaging Report ---
PROCEDURE: CT abdomen and pelvis without contrast. TECHNIQUE: Multiple contiguous axial images were obtained through the abdomen and pelvis without the use of intravenous contrast. INDICATION: Fever. Pelvic pain and nausea. FINDINGS: The lungs visualized portions appear clear. The liver demonstrates diffuse steatosis. Cholecystectomy clips are seen. The spleen, the pancreas, and the adrenal glands appear unremarkable for an unenhanced exam. The kidneys demonstrate no stones. No hydronephrosis. The abdominal aorta is normal in caliber. No para-aortic significantly enlarged lymph node is seen. There is suggestion of prior hysterectomy. There is no bowel obstruction. No significant free fluid or fluid collection in the abdomen or pelvis is seen. The osseous structures demonstrate degenerative changes in the SI joints and the hip joints. IMPRESSION: 1. No urinary tract stone or hydronephrosis. 2. Hepatic steatosis. Dictated by: Dictated on workstation # [id number]
== END ==
LOC: RAD 12:07
PROVIDERS: ATTEND Obstetrics & Gynecology
DX: K76.0 Fatty (change of) liver, not elsewhere classified (principal); Z90.710 Acquired absence of both cervix and uterus; R10.2 Pelvic and perineal pain; R50.9 Fever, unspecified; R11.0 Nausea
CPT/HCPCS: 74176

== ENCOUNTER → 2016-12-13 | Outpatient (CLI) | payer BC ==
--- NOTE | 2016-12-17 14:01 | Diagnostic Imaging Report ---
EXAMINATION: Bilateral screening mammogram 2D views with tomosynthesis. The current study was also evaluated with a Computer Aided Detection (CAD) system. INDICATION: Screening. The patient has lateral left breast pain. COMPARISON: None. This is a baseline study. FINDINGS: The breasts are composed of scattered fibroglandular densities. Scattered benign-appearing calcifications are seen. Allowing for technique and positional differences, no suspicious change is seen. IMPRESSION: No significant change. ACR BI-RADS Category 2: Benign findings. Result letter will be mailed to the patient. Note: At least 10% of breast cancer is not imaged by mammography. Dictated by: Dictated on workstation # [id number]
== END ==
LOC: RAD 13:09
PROVIDERS: ATTEND Family Medicine
DX: Z12.31 Encounter for screening mammogram for malignant neoplasm of breast (principal)
CPT/HCPCS: 77067

== ENCOUNTER 2017-08-21 05:46 | Outpatient (CLI) | payer BC ==
[~2017-08-21] VITALS: Ht 154.9 cm; Wt 88.0 kg
[~2017-08-21 05:46] MED LIST changes: +HYDR-34 PO; -HYDR-3816 PO
[2017-08-21] MEDS ORDERED: ARIP10TA10 PO (11:22)
[2017-08-21] MEDS ORDERED: FLUO20CA42 PO (11:22)
[2017-08-21] MEDS ORDERED: SMTR50T PO (11:22)
[2017-08-21] MEDS ORDERED: ESTR1TAB27 PO (11:22)
== END 2017-08-21 11:35 ==
LOC: PREOP 05:46
PROVIDERS: ATTEND Obstetrics & Gynecology
DX: Z01.818 Encounter for other preprocedural examination (principal)

== ENCOUNTER 2017-08-28 08:56 | Day surgery (SDC) | payer BC ==
[~2017-08-28] VITALS: Ht 154.9 cm; Wt 88.0 kg
[~2017-08-28 08:56] MED LIST changes: +ARIP10TA10 PO; +ESTR1TAB27 PO; +FLUO20CA42 PO; +SMTR50T PO
[2017-08-28] MEDS ORDERED: fentaNYL INJECTION 100 MCG/2 ML AMP ONE (09:16)
[2017-08-28] MEDS ORDERED: LIDOCAINE PF 2% 5 ML (XYLOCAINE) VIAL ONE ×3 (09:16→10:47)
[2017-08-28] MEDS ORDERED: proPOfol 200 MG/20 ML (DIPRIVAN) VIAL IV ONE ×2 (09:16→10:47)
[2017-08-28] MEDS ORDERED: MIDAZOLAM 2 MG/2 ML (VERSED) VIAL ONE (09:16)
[2017-08-28] MEDS ORDERED: DEXAMETHASONE 10 MG/ML (DECADRON) 1 ML VIAL ONE ×2 (09:18→10:47)
[2017-08-28] MEDS ORDERED: SEVOFLURANE (ULTANE) 15 ML INHAL SOLN ONE ×5 (09:18→10:47)
--- NOTE | 2017-08-28 09:23 | Progress Note-Pre Operative ---
Pre-Operative Progress Note H&P Reviewed The H&P was reviewed, patient examined and no changes noted. Date Seen by Provider: Aug 28, 2017 Time Seen by Provider: 09:15 Date H&P Reviewed: Aug 28, 2017 Time H&P Reviewed: 09:30 Pre-Operative Diagnosis: Rectocele BETHANY RAMOS DO Aug 28, 2017 9:23 am
--- NOTE | 2017-08-28 09:26 | Discharge Inst-Women's Service ---
Discharge Inst-Women's Serv Depart Medication/Instructions New, Converted or Re-Newed RX: RX on Chart Consults/Follow Up Additional Follow Up: Yes Orders/Referrals Dr. Ramos 5-6 weeks Activity Activity: Activity as Tolerated Driving Instructions: No Driving for 1 Week NO SMOKING: NO SMOKING Nothing Inside Vagina: No Douching, No Mabie, No Tampons Diet Discharge Diet: No Restrictions Symptoms to Report to : Bleeding Excessive, Pain Increased, Fever Over 101 Degrees F, Vaginal Bleeding Increase, Questions/Concerns For Any Problems or Questions: Contact Your Physician Skin/Wound Care Bathing Instructions: Shower (or sitz baths x 2 weeks) BETHANY RAMOS DO Aug 28, 2017 9:26 am
[2017-08-28] MEDS ORDERED: ACHD5005 PO (09:27)
[2017-08-28] MEDS ORDERED: IBUP-844 PO (09:27)
[2017-08-28] MEDS ORDERED: DOCU100C37 PO (09:27)
[2017-08-28] MEDS ORDERED: ATRACURIUM 50 MG/5 ML (TRACRIUM) IV ONE ×2 (09:28→10:47)
[2017-08-28] MEDS ORDERED: ONDANSETRON 4 MG/2 ML (SDV) Z0FRAN IV PRN (09:30)
[2017-08-28] MEDS ORDERED: ceFAZolin INJECTION 1,000 MG in NS (IVPB) 50 ML IV ONE (09:30)
[2017-08-28] MEDS ORDERED: BENZOCAINE/MENTHOL (DERMOPLAST) 56 ML CAN TP PRN (09:30)
[2017-08-28] MEDS ORDERED: ceFAZolin 1 GM/NS 50 ML IVPB IV ONE ×2 (09:30)
[2017-08-28] MEDS ORDERED: metroNIDAZOLE 500 MG/100 ML IVPB (PRE-MIX) IV ONE (09:30)
[2017-08-28] MEDS ORDERED: metroNIDAZOLE 500MG/100ML IVPB 100 ML IV ONE (09:30)
[2017-08-28] MEDS ORDERED: NS (IVPB) 0 ML ONE (09:48)
[2017-08-28] MEDS ORDERED: VASOPRESSIN INJECTION 20 UNIT/ML VIAL ONE (09:48)
[2017-08-28] MEDS ORDERED: NS (IVPB) 100 ML ONE (09:52)
[2017-08-28] MEDS ORDERED: SCOPOLAMINE 1.5 MG (TRANSDERM-SCOP) PATCH TOP ONE (10:00)
[2017-08-28] MEDS ORDERED: FAMOTIDINE 20MG/2ML IV (PEPCID) IV ONE (10:00)
[2017-08-28] MEDS ORDERED: ONDANSETRON 4 MG/2 ML (SDV) Z0FRAN IV ONE (10:00)
[2017-08-28 10:12] LABS: BASOPHILS % (AUTO) 1 % (0-10); EOSINOPHILS # (AUTO) 0.1 10^3/uL (0.0-0.3); EOSINOPHILS % (AUTO) 1 % (0-10); HEMATOCRIT 38 % (35-52); HEMOGLOBIN 13.2 G/DL (11.5-16.0); LYMPHOCYTES # (AUTO) 2.9 X 10^3 (1.0-4.0); LYMPHOCYTES % (AUTO) 40 % (12-44); MEAN CORPUSCULAR HEMOGLOBIN 32 PG (25-34); MEAN CORPUSCULAR HGB CONC 35 G/DL (32-36); MEAN CORPUSCULAR VOLUME 91 FL (80-99); MEAN PLATELET VOLUME 9.7 FL (7.4-10.4); MONOCYTES # (AUTO) 0.5 X 10^3 (0.0-1.0); MONOCYTES % (AUTO) 7 % (0-12); NEUTROPHILS # (AUTO) 3.7 X 10^3 (1.8-7.8); NEUTROPHILS % (AUTO) 51 % (42-75); PLATELET COUNT 293 10^3/uL (130-400); RED BLOOD COUNT 4.16 10^6/uL (4.35-5.85); RED CELL DISTRIBUTION WIDTH 13.1 % (10.0-14.5); WHITE BLOOD COUNT 7.3 10^3/uL (4.3-11.0)
[2017-08-28] MEDS ORDERED: ONDANSETRON 4 MG/2 ML (SDV) Z0FRAN ONE (10:12)
[2017-08-28] MEDS ORDERED: SCOPOLAMINE 1.5 MG (TRANSDERM-SCOP) PATCH ONE (10:12)
[2017-08-28] MEDS ORDERED: FAMOTIDINE 20MG/2ML IV (PEPCID) ONE (10:13)
[2017-08-28] MEDS: LACTATED RINGERS 1,000 ML IV PRN ×2 (10:20→12:00)
[2017-08-28 10:33] VITALS: BP 125/77
[2017-08-28] MEDS ORDERED: LACTATED RINGERS 1,000 ML IV ONE (10:47)
[2017-08-28] MEDS ORDERED: HURRICAINE EXT TUBE (BENZOCAINE) ONE (10:47)
[2017-08-28] MEDS ORDERED: ESTROGENS CONJ. CREAM 30 GM (PREMARIN) TUBE ONE (11:03)
[2017-08-28] MEDS ORDERED: GLYCOPYRROLATE 0.2 MG/ML (ROBINUL) 2 ML VIAL ONE (11:11)
[2017-08-28] MEDS ORDERED: NEOSTIGMINE 1 MG/ML 5 ML SYRINGE ONE (11:11)
[2017-08-28] MEDS ORDERED: ONDANSETRON 4 MG/2 ML (SDV) Z0FRAN IVP PRN (11:30)
[2017-08-28] MEDS ORDERED: MEPERIDINE (DEMEROL) INJ 50 MG/ML IVP PRN (11:30)
[2017-08-28] MEDS ORDERED: morphine INJ 10 MG/ML 1ML (SYR OR VIAL) ONE (11:38)
[2017-08-28] MEDS: morphine INJ 10 MG/ML 1ML (SYR OR VIAL) IVP PRN ×2 (11:45→11:50)
--- NOTE | 2017-08-28 12:32 | Anesthesia-General Post-Op ---
General Patient Condition Mental Status/LOC: Same as Preop Cardiovascular: Satisfactory Nausea/Vomiting: Absent Respiratory: Satisfactory Pain: Controlled Complications: Absent Post Op Complications Complications None Follow Up Care/Instructions Patient Instructions None needed. Anesthesia/Patient Condition Patient Condition Patient is doing well, no complaints, stable vital signs, no apparent adverse anesthesia problems. No complications reported per nursing. [place] [facility] [place]: Yes YESENIA OSORIO CRNA Aug 28, 2017 12:32
[2017-08-28 12:49] VITALS: BP 128/75
[2017-08-28] MEDS: HYDROcodone/APAP 5 MG/325 MG (LORTAB) TAB PO PRN ×2 (14:35→19:57)
[2017-08-28] MEDS: KETOROLAC 30 MG/ML VIAL IV SCH ×3 (15:11→23:28)
[2017-08-28] MEDS: D5 LR IV SOLUTION 1,000 ML IV SCH ×3 (15:27→23:30)
[2017-08-28 16:48] VITALS: BP 117/74
--- NOTE | 2017-08-28 17:12 | OPERATIVE REPORT ---
DATE OF SERVICE: PREOPERATIVE DIAGNOSIS: A 42-year-old female with grade III rectocele. POSTOPERATIVE DIAGNOSIS: A 42-year-old female with grade III rectocele. PROCEDURE: Posterior colporrhaphy. SURGEON: Endy Quinn DO SUPPLY ANALYST: RAMONITA Skelton ANESTHESIA: General endotracheal. ESTIMATED BLOOD LOSS: Minimal. URINE OUTPUT: 10 mL, clear at the end of the procedure. FLUIDS: 1000 mL of lactated Ringer solution. FINDINGS: A grade III rectocele, grossly normal vaginal mucosa and a blind vaginal cuff due to previous hysterectomy. INDICATIONS FOR PROCEDURE: This 42-year-old female is a patient who had kept her appointment for annual well-woman exam and described concerns with rectocele and having to reduce her rectum with severe constipation in order to defecate. The patient had growing concern as well with intercourse, how this was affecting her and making her feel as though she was going to have a bowel movement during certain positions in intercourse. Due to this being an ongoing problem with her marriage and elected to have it repaired, we discussed posterior colporrhaphy and how it is an elective procedure. The patient wished to proceed. Risks of the procedure were discussed with the patient in detail including risks of bleeding, infection, damage to surrounding structures, risk to the bowel, bowel injury, possible rectovaginal fistula formation, need for possible extensive secondary surgeries. We also discussed the potential for breakdown over a 5 to 15-year timeframe and possible need for another colporrhaphy down the road. Postoperative expectations, recovery time was all reviewed with the patient as well. After all of her questions were answered with the present, consent was obtained in the preoperative area and the patient was taken to the operating room. OPERATIVE REPORT IN DETAIL: Once in the operating room, general anesthesia was found to be adequate. She was placed in dorsal lithotomy position, prepped and draped in normal sterile fashion. The rectocele was identified. The margins of the mucocutaneous junction posteriorly were grasped using 2 Allis clamps and the perineal body was infiltrated using vasopressin concentration of 20 units and 100 mL of normal saline. Once this was infiltrated, I infiltrated the submucosa of the rectocele margins on the posterior vaginal wall. I then made an incision along the mucocutaneous junction between my 2 Allis clamps and removed the subcutaneous tissue of the perineal body in an upside down triangular incision. Once this was removed, I then was able to undermine the mucosal tissue of the vagina using Metzenbaum scissors, the submucosa away from the mucosa and delineating a dissection plane of rectovaginal fascia. This was done all the way down the midline of the rectocele defect. I then was able to bluntly dissect off the lateral aspects of the vaginal incision from the rectovaginal fascia. The excess vaginal tissue was then trimmed. I then reapproximated the vaginal mucosa and rectovaginal fascia together with a running plicating stitch using 2-0 Vicryl suture in a running locked fashion. At the end of my repair, I reapproximate the perineal body using deep crown stitches and the 3-0 Vicryl suture and then continued by closing the peritoneum in a running subcuticular stitch, after which the vagina was packed with packing it soaked in Premarin cream. I placed a Justin catheter. The patient tolerated the procedure well and sent to recovery area in stable condition. Lap and sponge counts were correct at the end of the procedure. Instrument counts were correct as well. Job ID: [id number] DocumentID: [id number] Dictated Date: 08/28/2017 11:22:53 Data Analysis Manager Date: 08/28/2017 17:11:12 Dictated By: DO MERCEDES SCHRADER
[2017-08-28 20:30] VITALS: BP 111/71
[2017-08-29 00:15] VITALS: BP 101/59
[2017-08-29 05:15] VITALS: BP 109/64
[2017-08-29] MEDS: KETOROLAC 30 MG/ML VIAL IV SCH (05:25)
[2017-08-29 08:00] VITALS: BP 126/70
[2017-08-29] MEDS ORDERED: IBUPROFEN 600 MG (MOTRIN) TAB PO SCH (08:00)
[2017-08-29] MEDS: HYDROcodone/APAP 5 MG/325 MG (LORTAB) TAB PO PRN (08:12)
[2017-08-29] MEDS ORDERED: DOCUSATE SODIUM 100 MG (COLACE) CAP PO SCH (09:00)
== END 2017-08-29 10:25 | disposition home or self-care (01) ==
LOC: SDC 08:56 → WS 12:30 → 3RD 08-29 10:11 → SDC 08-29 10:25
PROVIDERS: ATTEND Obstetrics & Gynecology
DX: N81.6 Rectocele (principal)
CPT/HCPCS: 36415; 85025; 86850; 86900; 86901; 87081; 94664

== ENCOUNTER → 2021-09-17 | Outpatient (CLI) | payer SELFPAY ==
[~2021-09-17] MED LIST changes: +ACHD5005 PO; +IBUP-844 PO
[2021-09-17 08:55] LABS: BASOPHILS % (AUTO) 1 % (0-10); EOSINOPHILS # (AUTO) 0.1 10^3/uL (0.0-0.3); EOSINOPHILS % (AUTO) 2 % (0-10); HEMATOCRIT 40 % (35-52); HEMOGLOBIN 13.2 g/dL (11.5-16.0); LYMPHOCYTES # (AUTO) 2.2 10^3/uL (1.0-4.0); LYMPHOCYTES % (AUTO) 26 % (12-44); MEAN CORPUSCULAR HEMOGLOBIN 31 pg (25-34); MEAN CORPUSCULAR HGB CONC 33 g/dL (32-36); MEAN CORPUSCULAR VOLUME 92 fL (80-99); MEAN PLATELET VOLUME 9.3 fL (9.0-12.2); MONOCYTES # (AUTO) 0.6 10^3/uL (0.0-1.0); MONOCYTES % (AUTO) 7 % (0-12); NEUTROPHILS # (AUTO) 5.6 10^3/uL (1.8-7.8); NEUTROPHILS % (AUTO) 64 % (42-75); PLATELET COUNT 320 10^3/uL (130-400); WHITE BLOOD COUNT 8.7 10^3/uL (4.3-11.0)
[2021-09-17 09:06] LABS: BILIRUBIN,TOTAL 0.4 MG/DL (0.1-1.0); CALCIUM 8.8 MG/DL (8.5-10.1); CREATININE SERUM 0.82 MG/DL (0.60-1.30); POTASSIUM 4.4 MMOL/L (3.6-5.0); TOTAL PROTEIN 6.8 GM/DL (6.4-8.2)
== END ==
LOC: LAB 08:16
PROVIDERS: ATTEND Family Medicine
DX: Z00.00 Encounter for general adult medical examination without abnormal findings (principal); I10 Essential (primary) hypertension
CPT/HCPCS: 36415; 80053; 80061; 84443; 85025

== ENCOUNTER 2022-04-18 20:02 | Emergency (ER) | payer BC ==
[~2022-04-18] VITALS: Ht 154 cm; Wt 106.0 kg
[2022-04-18 20:23] LABS: BASOPHILS # (AUTO) 0.1 10^3/uL (0.0-0.1); BASOPHILS % (AUTO) 1 % (0-10); EOSINOPHILS # (AUTO) 0.2 10^3/uL (0.0-0.3); EOSINOPHILS % (AUTO) 2 % (0-10); HEMATOCRIT 38 % (35-52); HEMOGLOBIN 13.1 g/dL (11.5-16.0); LYMPHOCYTES # (AUTO) 5.2 10^3/uL (1.0-4.0); LYMPHOCYTES % (AUTO) 46 % (12-44); MEAN CORPUSCULAR HEMOGLOBIN 31 pg (25-34); MEAN CORPUSCULAR HGB CONC 34 g/dL (32-36); MEAN CORPUSCULAR VOLUME 91 fL (80-99); MEAN PLATELET VOLUME 9.6 fL (9.0-12.2); MONOCYTES # (AUTO) 0.8 10^3/uL (0.0-1.0); MONOCYTES % (AUTO) 7 % (0-12); NEUTROPHILS # (AUTO) 4.9 10^3/uL (1.8-7.8); NEUTROPHILS % (AUTO) 44 % (42-75); PLATELET COUNT 367 10^3/uL (130-400); WHITE BLOOD COUNT 11.2 10^3/uL (4.3-11.0)
[2022-04-18 20:32] LABS: INR 0.9 (0.8-1.4); PROTHROMBIN TIME PATIENT 12.9 SEC (12.2-14.7)
--- NOTE | 2022-04-18 20:32 | ED Chest Pain ---
General Chief Complaint: Chest Pain Stated Complaint: CHEST PAIN Nursing Triage Note: PT TO ED W/ C/O CP ONSET X3 MOS, WORSE TONIGHT. PT REPORTS TOOK "1/2 OF HUSBANDS NTG TAB LAST NOC ET IT HELPED SO TOOK ANOTHER TONIGHT ET DENIED IMPROVEMENT." REPORTS RADIATION OF PAIN TO NECK, LT ARM ET BACK. NO OTHER C/O VOICED. Source: patient Exam Limitations: no limitations History of Present Illness Date Seen by Provider: Apr 18, 2022 Time Seen by Provider: 20:18 Initial Comments 46-year-old female presents to the ED with complaints of intermittent left-sided chest pain for the last 3 months. States the pain has been on and off all day today, but has not subsided since 6 PM. Describes the pain as a tight, dull ache, with occasional sharp pains. Reports the sharp pains radiate into her abdomen when they occur but go away. Reports the pain is also radiating into her left arm, left neck, and between her shoulder blades. She states that last night she took half a tablet of her 's nitro which helped the pain. She tried doing that again tonight but it did not help. She also reports shortness of air with exertion over the last 3 months. Reports she has had a nagging cough. Denies fevers, nausea, vomiting. Denies any history of DVTs, denies any recent long travel, no recent surgery. Past medical history includes anxiety and hypertension. Currently takes Abilify, Xanax, Prozac, and losartan. She used to smoke, quit at age 19. Drinks occasionally, does not use any drugs. Reports her physician referred her to Dr. Crain, and she has an appointment with Dr. Crain on May 07. Allergies and Home Medications Allergies Coded Allergies: Penicillins (Verified Allergy, Unknown, 08/21/17) Reported by pt. Patient Home Medication List Home Medication List Reviewed: Yes Alprazolam (Xanax) 1 Mg Tablet, 1 MG PO Q8H PRN for ANXIETY, (Reported) Entered as Reported by: GIGI KEYES on 08/09/16 1411 Aripiprazole (Abilify) 10 Mg Tablet, 10 MG PO DAILY, (Reported) Entered as Reported by: CHANDAN LUCIANO on 08/21/17 1122 Docusate Sodium (Docusate Sodium) 100 Mg Capsule, 100 MG PO BID PRN for CONSTIPATION-1ST LINE Prescribed by: BETHANY RAMOS on 08/28/17926 Estradiol (Estrace Tablet) 1 Mg Tablet, 1 MG PO DAILY, (Reported) Entered as Reported by: CHANDAN LUCIANO on 08/21/171121 Fluoxetine HCl (Prozac) 20 Mg Capsule, 20 MG PO DAILY, (Reported) Entered as Reported by: CHANDAN LUCIANO on 08/21/171121 Hydrocodone Bit/Acetaminophen (Lortab 5 Mg Tablet) 1 Tab Tab, 1-2 TAB PO Q4H PRN for PAIN-MODERATE TO SEVERE Prescribed by: BETHANY RAMOS on 08/28/17926 Ibuprofen (Ibu) 600 Mg Tablet, 600 MG PO Q6H Prescribed by: BETHANY RAMOS on 08/28/17926 Sumatriptan Succinate (Imitrex) 50 Mg Tab, 50 MG PO PRN, (Reported) Entered as Reported by: CHANDAN LUCIANO on 08/21/171121 Review of Systems Review of Systems Constitutional: see HPI Past Drxucqm-Nmapxn-Iumqjf Hx Patient Social History Tobacco Use?: No Use of E-Cig and/or Vaping dev: No Substance use?: No Alcohol Use?: No Pt feels they are or have been: No Seasonal Allergies Seasonal Allergies: No Past Medical History Surgeries: Yes ( X2) Gallbladder, Hysterectomy Respiratory: No Cardiac: Yes (PVC's) Neurological: Yes Headaches /Migraines 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 0.0oz. 87.812341ag; 44.00 BMI Method:Stated General Appearance: No Apparent Distress, WD/WN Neck: Normal Inspection, Supple Respiratory: Lungs Clear, Normal Breath Sounds, No Accessory Muscle Use, No Respiratory Distress Cardiovascular: Regular Rate, Rhythm, No Edema, No Gallop, No JVD, No Murmur Extremity: Normal Inspection, Normal Range of Motion Neurologic/Psychiatric: Alert, Normal Mood/Affect Skin: Normal Color, Warm/Dry Progress/Results/Core Measures Results/Orders Lab Results Laboratory Tests Test 04/18/22 20:14 04/18/22 21:45 Range/Units White Blood Count 11.2 H 4.3-11.0 10^3/uL Red Blood Count 4.24 3.80-5.11 10^6/uL Hemoglobin 13.1 11.5-16.0 g/dL Hematocrit 38 35-52 % Mean Corpuscular Volume 91 80-99 fL Mean Corpuscular Hemoglobin 31 25-34 pg Mean Corpuscular Hemoglobin Concent 34 32-36 g/dL Red Cell Distribution Width 12.6 10.0-14.5 % Platelet Count 367 130-400 10^3/uL Mean Platelet Volume 9.6 9.0-12.2 fL Immature Granulocyte % (Auto) 0 % Neutrophils (%) (Auto) 44 42-75 % Lymphocytes (%) (Auto) 46 H 12-44 % Monocytes (%) (Auto) 7 0-12 % Eosinophils (%) (Auto) 2 0-10 % Basophils (%) (Auto) 1 0-10 % Neutrophils # (Auto) 4.9 1.8-7.8 10^3/uL Lymphocytes # (Auto) 5.2 H 1.0-4.0 10^3/uL Monocytes # (Auto) 0.8 0.0-1.0 10^3/uL Eosinophils # (Auto) 0.2 0.0-0.3 10^3/uL Basophils # (Auto) 0.1 0.0-0.1 10^3/uL Immature Granulocyte # (Auto) 0.0 0.0-0.1 10^3/uL Prothrombin Time 12.9 12.2-14.7 SEC INR Comment 0.9 0.8-1.4 Activated Partial Thromboplast Time 28 24-35 SEC D-Dimer <= 0.27 0.00-0.49 UG/ML Sodium Level 140 135-145 MMOL/L Potassium Level 4.1 3.6-5.0 MMOL/L Chloride Level 104 98-107 MMOL/L Carbon Dioxide Level 24 21-32 MMOL/L Anion Gap 12 5-14 MMOL/L Blood Urea Nitrogen 18 7-18 MG/DL Creatinine 0.88 0.60-1.30 MG/DL Estimat Glomerular Filtration Rate 83 BUN/Creatinine Ratio 20 Glucose Level 115 H 70-105 MG/DL Calcium Level 9.5 8.5-10.1 MG/DL Corrected Calcium 9.4 8.5-10.1 MG/DL Magnesium Level 2.0 1.6-2.4 MG/DL Total Bilirubin 0.3 0.1-1.0 MG/DL Aspartate Amino Transf (AST/SGOT) 21 5-34 U/L Alanine Aminotransferase (ALT/SGPT) 35 0-55 U/L Alkaline Phosphatase 77 40-136 U/L Troponin I < 0.028 < 0.028 <0.028 NG/ML B-Type Natriuretic Peptide < 10.0 <100.0 PG/ML Total Protein 7.3 6.4-8.2 GM/DL Albumin 4.1 3.2-4.5 GM/DL My Orders Orders - TOÑITO MAYBERRY APRN Ekg Tracing (04/18/22 20:04) Cbc With Automated Diff (04/18/22 20:17) Chest 1 View, Ap/Pa Only (04/18/22 20:17) Protime With Inr (04/18/22 20:17) Partial Thromboplastin Time (04/18/22 20:17) Monitor-Rhythm Ecg Trace Only (04/18/22 20:17) Ed Iv/Invasive Line Start (04/18/22 20:17) Troponin I Josue (04/18/22 20:17) Comprehensive Metabolic Panel (04/18/22 20:17) Magnesium (04/18/22 20:17) Fibrin Degradation Products (04/18/22 20:24) Bnp [place]y (04/18/22 20:24) Troponin I [place]y (04/18/22 21:28) Ketorolac Injection (Toradol Injection) (04/18/22 21:45) Medications Given in ED Vital Signs/I&O 04/18/22 04/18/22 20:04 22:37 Temp 36.2 Pulse 100 89 Resp 24 18 B/P (MAP) 134/89 (104) 121/58 Pulse Ox 96 96 O2 Delivery Room Air Room Air Blood Pressure Mean: 104 Progress Progress Note #1: Time: 20:33 Progress Note Patient seen and evaluated, resting comfortably in bed, no acute distress based on exam and symptoms, differential diagnosis includes but is not limited to, DE, PE, pneumonia, angina, CHF. Work-up initiated including CBC, CMP, magnesium, troponin, BNP, D-dimer, chest x-ray, EKG. Progress Note #2: Time: 22:20 Progress Note Labs and imaging reviewed. CBC shows slightly elevated WBC 11.2. CMP grossly normal, glucose slightly elevated 115. Initial and repeat troponin negative. BNP negative. Coags normal. D-dimer negative. Chest x-ray shows no acute cardiopulmonary findings. Initial ECG Impression Date: Apr 18, 2022 Initial ECG Impression Time: 20:08 Initial ECG Rate: 96 Initial ECG Rhythm: Normal Sinus Initial ECG Intervals: Normal Initial ECG Impression: Normal Initial ECG Comparisson: Unchanged Diagnostic Imaging Diagonstic Imaging: Xray Plain Films/CT/US/NM/MRI: chest Comments [facility] [place] [place], [place] NAME: TIERRA NOE [facility] REC#: [id number] PT STATUS: REG ER : 1975 PHYSICIAN: TOÑITO MAYBERRY APRN ADMIT DATE: 04/18/22/ER Signed Date of Exam:04/18/22 CHEST 1 VIEW, AP/PA ONLY EXAM: Chest 1 view, AP/PA only INDICATION: Chest pain. COMPARISON: 08/11/2013. FINDINGS: Normal heart size and central pulmonary vascularity. Lungs are clear. No pleural effusion or pneumothorax. No acute osseous finding. No significant change. IMPRESSION: No acute cardiopulmonary finding. Dictated by: Dictated on workstation # [id number] Dict: 04/18/222038 Trans: 04/18/222051 [facility] [id number] Interpreted by: KLEVER WILSON MD Electronically signed by: KLEVER WILSON MD 04/18/222051 Departure Impression Primary Impression: Chest pain Disposition: 01 HOME, SELF-CARE Condition: Stable Departure-Patient Inst. Decision time for Depature: 22:29 Referrals: YASMEEN FITCH MD (PCP/Family) Primary Care Physician Patient Instructions: Chest Pain Add. Discharge Instructions: Follow-up with Dr. Crain as scheduled. Return to the ED if you have worsening or uncontrolled chest pain, shortness of breath, lightheadedness, feeling faint, nausea, vomiting, or any other new, concerning, or worsening symptoms. All discharge instructions reviewed with patient and/or family. Voiced understa nding. Copy Copies To 1: YASMEEN FITCH MD Copies To 2: JUSTIN CRAIN MD, BRITTANY R APRN Apr 18, 2022 20:32
[2022-04-18 20:40] LABS: ALANINE AMINOTRANSFERASE 35 U/L (0-55); ALBUMIN 4.1 GM/DL (3.2-4.5); ALKALINE PHOSPHATASE 77 U/L (40-136); BILIRUBIN,TOTAL 0.3 MG/DL (0.1-1.0); BUN/CREATININE RATIO 20; CALCIUM 9.5 MG/DL (8.5-10.1); CARBON DIOXIDE 24 MMOL/L (21-32); CHLORIDE 104 MMOL/L (98-107); CREATININE SERUM 0.88 MG/DL (0.60-1.30); GFR ESTIMATED 83; GLUCOSE 115 MG/DL (70-105); POTASSIUM 4.1 MMOL/L (3.6-5.0); SODIUM 140 MMOL/L (135-145); TOTAL PROTEIN 7.3 GM/DL (6.4-8.2)
--- NOTE | 2022-04-18 20:42 | Diagnostic Imaging Report ---
EXAM: Chest 1 view, AP/PA only INDICATION: Chest pain. COMPARISON: 08/11/2013. FINDINGS: Normal heart size and central pulmonary vascularity. Lungs are clear. No pleural effusion or pneumothorax. No acute osseous finding. No significant change. IMPRESSION: No acute cardiopulmonary finding. Dictated by: Dictated on workstation # [id number]
[2022-04-18] MEDS ORDERED: KETOROLAC 30 MG/ML VIAL IVP ONE (21:45)
[2022-04-18 22:37] VITALS: BP 121/58
== END 2022-04-18 22:37 | disposition home or self-care (01) ==
LOC: EDUNIT# 20:02 → ER 20:04
DX: R07.89 Other chest pain (principal); I10 Essential (primary) hypertension; F41.9 Anxiety disorder, unspecified; D72.829 Elevated white blood cell count, unspecified; Z79.899 Other long term (current) drug therapy; Z87.891 Personal history of nicotine dependence
CPT/HCPCS: 36415; 71045; 80053; 83735; 83880; 84484; 85025; 85379; 85610; 85730; 93005; 93041

== ENCOUNTER 2022-05-27 08:08 | Outpatient (CLI) | payer BC | END 2022-05-27 09:35 | LOC: SLEEP 08:08 | PROVIDERS: ATTEND Internal Medicine Cardiovascular Disease | DX: G47.33 Obstructive sleep apnea (adult) (pediatric) (principal); G47.10 Hypersomnia, unspecified; I10 Essential (primary) hypertension; R06.83 Snoring; R51.9 Headache, unspecified | CPT/HCPCS: G0399 ==

== ENCOUNTER → 2022-05-27 | Outpatient (CLI) | payer BC | LOC: CARD 08:30 | PROVIDERS: ATTEND Internal Medicine Cardiovascular Disease | DX: G47.30 Sleep apnea, unspecified (principal); R07.9 Chest pain, unspecified | CPT/HCPCS: 93306 ==

== ENCOUNTER → 2022-06-12 | Outpatient (CLI) | payer BC ==
[~2022-06-12] VITALS: Ht 154 cm; Wt 104.0 kg
[~2022-06-12] MED LIST changes: +CATHETER FLUSH 10 ML SYR IVP PRN
[2022-06-12 13:23] VITALS: BP 143/68
--- NOTE | 2022-06-12 15:21 | Cardiology Stress Test Report ---
Stress Test Report Date of Procedure/Referring: Date of Procedure: Jun 12, 2022 PCP Yasmeen Fitch MD Admitting Physician Admitting Physician: Attending Physician: Gracie Ansari Indications: CP Baseline Heart Rate: 87 Baseline Blood Pressure: Blood Pressure Systolic: 143 Blood Pressure Diastolic: 68 Vital Signs Date Time Temp Pulse Resp B/P (MAP) Pulse Ox O2 Delivery O2 Flow Rate FiO2 06/12/22 13:23 87 143/68 (93) Baseline Vital Signs Vital Signs Date Time Temp Pulse Resp B/P (MAP) Pulse Ox O2 Delivery O2 Flow Rate FiO2 06/12/22 13:23 87 143/68 (93) Baseline EKG: Baseline EKG: NSR Summary: After explaining the procedure and details to the patient, she signed the consent and was brought to the stress nuclear laboratory. Patient exercised on standard Jack protocol, EKG, heart rate and blood pressure were monitored continuously, resting and stress doses of radio tracer were injected, imaging was acquired and reviewed in the short axis, horizontal long axis and vertical long axis views Patient was able to exercise for a total of 4.30 minutes on Jack protocol, METs 5.6 Maximum heart rate 154 Maximum blood pressure 215/98 Stress EKG, Minimal nondiagnostic changes Recovery EKG, Return to baseline TID: 0.89 SSS: 5 SDS: 3 EF: 60 Conclusion: Fair exercise tolerance for 4 minutes and 30 seconds on standard Jack protocol, 5.6 METS achieving 88% of maximal expected heart rate Appropriate heart rate response to exercise with hypertensive response to exercise with peak blood pressure 215/98 return to baseline during recovery Nondiagnostic EKG changes with exercise return to baseline during recovery Breast attenuation with reversible ischemia involving the mid to apical anterior wall Normal left ventricular size, ejection fraction 60% Copy Copies To 1: YASMEEN FITCH MD, BASHAR J MD Jun 12, 2022 15:21
== END ==
LOC: CARD 11:18
PROVIDERS: ATTEND Internal Medicine Cardiovascular Disease
DX: R07.9 Chest pain, unspecified (principal); G47.30 Sleep apnea, unspecified
CPT/HCPCS: 78452; 93017; A9502

== ENCOUNTER 2022-06-17 11:54 | Observation (INO) | payer BC ==
[~2022-06-17] VITALS: Ht 154.9 cm; Wt 112.1 kg
[2022-06-17] VITALS (19 sets, daily range): BP systolic 88–129; BP diastolic 36–77
[~2022-06-17 11:54] MED LIST changes: -CATHETER FLUSH 10 ML SYR IVP PRN
[2022-06-17 12:22] LABS: BASOPHILS # (AUTO) 0.1 10^3/uL (0.0-0.1); BASOPHILS % (AUTO) 1 % (0-10); EOSINOPHILS # (AUTO) 0.2 10^3/uL (0.0-0.3); EOSINOPHILS % (AUTO) 2 % (0-10); HEMATOCRIT 37 % (35-52); HEMOGLOBIN 12.5 g/dL (11.5-16.0); LYMPHOCYTES # (AUTO) 3.7 10^3/uL (1.0-4.0); LYMPHOCYTES % (AUTO) 38 % (12-44); MEAN CORPUSCULAR HEMOGLOBIN 31 pg (25-34); MEAN CORPUSCULAR HGB CONC 34 g/dL (32-36); MEAN CORPUSCULAR VOLUME 93 fL (80-99); MEAN PLATELET VOLUME 9.4 fL (9.0-12.2); MONOCYTES # (AUTO) 0.6 10^3/uL (0.0-1.0); MONOCYTES % (AUTO) 6 % (0-12); NEUTROPHILS # (AUTO) 5.2 10^3/uL (1.8-7.8); NEUTROPHILS % (AUTO) 54 % (42-75); PLATELET COUNT 322 10^3/uL (130-400); WHITE BLOOD COUNT 9.7 10^3/uL (4.3-11.0)
--- NOTE | 2022-06-17 12:23 | ED Chest Pain ---
General Chief Complaint: Chest Pain Stated Complaint: SOB | CHEST PAINS Nursing Triage Note: PT AMB TO RM 6 WITH CC OF CHEST PAIN AND SOA SINCE THIS AM. PT STATES CALLED DR. CRAIN OFFICE THIS AM AND WAS SENT TO ED. PT REPORTS CP IS HEAVY AND RADIATES TO L ARM. PT STATES SCHEDULED FOR HEART CATH WED WITH RAHEEL. Source: patient Exam Limitations: no limitations History of Present Illness Date Seen by Provider: June 17, 2022 Time Seen by Provider: 12:03 Initial Comments 46-year-old female presents to the ED with complaints of heaviness in the middle of her chest as well as sharp pains that radiate straight to her back with left arm heaviness starting this morning around 8 AM. She had an abnormal stress test recently, and is scheduled for a cardiac cath this Friday. She also reports mid upper abdominal pain with nausea, feeling shaky and fatigued. 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 She reports mild shortness of air, states she feels like she needs to take a deep breath. She denies fevers. Last bowel movement was today and normal. Past medical history includes hypertension, obesity, and she used to smoke 25 years ago. Denies having heart attack in the past. She currently takes Prozac, Abilify, Xanax as needed, losartan, aspirin, and sumatriptan as needed. Allergies and Home Medications Allergies Coded Allergies: Penicillins (Verified Allergy, Unknown, 08/21/17) Reported by pt. Patient Home Medication List Home Medication List Reviewed: Yes Alprazolam (Xanax) 1 Mg Tablet, 1 MG PO Q8H PRN for ANXIETY, (Reported) Entered as Reported by: GIGI KEYES on 08/09/16 1411 Aripiprazole (Abilify) 10 Mg Tablet, 10 MG PO DAILY, (Reported) Entered as Reported by: CHANDAN LUCIANO on 08/21/17 1122 Docusate Sodium (Docusate Sodium) 100 Mg Capsule, 100 MG PO BID PRN for CONSTIPATION-1ST LINE Prescribed by: BETHANY RAMOS on 08/28/17 0927 Estradiol (Estrace Tablet) 1 Mg Tablet, 1 MG PO DAILY, (Reported) Entered as Reported by: CHANDAN LUCIANO on 7/5/18 1122 Fluoxetine HCl (Prozac) 20 Mg Capsule, 20 MG PO DAILY, (Reported) Entered as Reported by: CHANDAN LUCIANO on 08/21/17 112 Hydrocodone Bit/Acetaminophen (Lortab 5 Mg Tablet) 1 Tab Tab, 1-2 TAB PO Q4H PRN for PAIN-MODERATE TO SEVERE Prescribed by: BETHANY RAMOS on 08/28/17926 Ibuprofen (Ibu) 600 Mg Tablet, 600 MG PO Q6H Prescribed by: BETHANY RAMOS on 08/28/17926 Sumatriptan Succinate (Imitrex) 50 Mg Tab, 50 MG PO PRN, (Reported) Entered as Reported by: CHANDAN LUCIANO on 08/21/171121 Review of Systems Review of Systems Constitutional: see HPI Past Osjblts-Wtonhl-Aweppu Hx Patient Social History Tobacco Use?: No Substance use?: No Alcohol Use?: No Pt feels they are or have been: No Seasonal Allergies Seasonal Allergies: No Past Medical History Surgery/Hospitalization HX: ROSHAN C SECTION X2 hyst Surgeries: Yes ( X2) Gallbladder, Hysterectomy Respiratory: No Cardiac: Yes (PVC's) Neurological: Yes Headaches /Migraines 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 0.0oz. 87.621653ww; 43.85 BMI Method:Stated General Appearance: No Apparent Distress, WD/WN Neck: Normal Inspection, Supple Respiratory: Lungs Clear, Normal Breath Sounds, No Accessory Muscle Use, No Respiratory Distress, Other (Midsternal chest tender to palpation) Cardiovascular: Regular Rate, Rhythm Gastrointestinal: Normal Bowel Sounds, Soft, Tenderness (Mild epigastric region tenderness) Extremity: Normal Inspection, Normal Range of Motion Neurologic/Psychiatric: Alert, Normal Mood/Affect Skin: Normal Color, Warm/Dry Progress/Results/Core Measures Results/Orders Lab Results Laboratory Tests Test 06/17/22 12:12 Range/Units White Blood Count 9.7 4.3-11.0 10^3/uL Red Blood Count 4.01 3.80-5.11 10^6/uL Hemoglobin 12.5 11.5-16.0 g/dL Hematocrit 37 35-52 % Mean Corpuscular Volume 93 80-99 fL Mean Corpuscular Hemoglobin 31 25-34 pg Mean Corpuscular Hemoglobin Concent 34 32-36 g/dL Red Cell Distribution Width 12.6 10.0-14.5 % Platelet Count 322 130-400 10^3/uL Mean Platelet Volume 9.4 9.0-12.2 fL Immature Granulocyte % (Auto) 0 % Neutrophils (%) (Auto) 54 42-75 % Lymphocytes (%) (Auto) 38 12-44 % Monocytes (%) (Auto) 6 0-12 % Eosinophils (%) (Auto) 2 0-10 % Basophils (%) (Auto) 1 0-10 % Neutrophils # (Auto) 5.2 1.8-7.8 10^3/uL Lymphocytes # (Auto) 3.7 1.0-4.0 10^3/uL Monocytes # (Auto) 0.6 0.0-1.0 10^3/uL Eosinophils # (Auto) 0.2 0.0-0.3 10^3/uL Basophils # (Auto) 0.1 0.0-0.1 10^3/uL Immature Granulocyte # (Auto) 0.0 0.0-0.1 10^3/uL Prothrombin Time 13.4 12.2-14.7 SEC INR Comment 1.0 0.8-1.4 Activated Partial Thromboplast Time 27 24-35 SEC Sodium Level 138 135-145 MMOL/L Potassium Level 4.3 3.6-5.0 MMOL/L Chloride Level 107 98-107 MMOL/L Carbon Dioxide Level 20 L 21-32 MMOL/L Anion Gap 11 5-14 MMOL/L Blood Urea Nitrogen 15 7-18 MG/DL Creatinine 0.81 0.60-1.30 MG/DL Estimat Glomerular Filtration Rate 91 BUN/Creatinine Ratio 19 Glucose Level 125 H 70-105 MG/DL Calcium Level 8.8 8.5-10.1 MG/DL Corrected Calcium 8.9 8.5-10.1 MG/DL Magnesium Level 1.8 1.6-2.4 MG/DL Total Bilirubin 0.3 0.1-1.0 MG/DL Aspartate Amino Transf (AST/SGOT) 21 5-34 U/L Alanine Aminotransferase (ALT/SGPT) 35 0-55 U/L Alkaline Phosphatase 72 40-136 U/L Troponin I < 0.028 <0.028 NG/ML Total Protein 6.8 6.4-8.2 GM/DL Albumin 3.9 3.2-4.5 GM/DL Amylase Level 41 25-125 U/L Lipase 16 8-78 U/L My Orders Orders - TOÑITO MAYBERRY APRN Cbc With Automated Diff (06/17/22 12:03) Magnesium (06/17/22 12:03) Chest 1 View, Ap/Pa Only (06/17/22 12:03) Comprehensive Metabolic Panel (06/17/22 12:03) Protime With Inr (06/17/22 12:03) Partial Thromboplastin Time (06/17/22 12:03) Monitor-Rhythm Ecg Trace Only (06/17/22 12:03) Ed Iv/Invasive Line Start (06/17/22 12:03) Troponin I Josue (06/17/22 12:03) Amylase (06/17/22 12:18) Lipase (06/17/22 12:18) Ed Admission (Communication) (06/17/22 13:09) Vital Signs/I&O 06/17/22 11:57 Temp 37.5 Pulse 105 Resp 20 B/P (MAP) 127/56 (79) Pulse Ox 96 O2 Delivery Room Air Blood Pressure Mean: 79 Progress Progress Note : Time: 12:23 Progress Note Patient seen and evaluated, resting comfortably in bed, no acute distress. Based on exam and symptoms, work-up initiated including CBC, CMP, magnesium, troponin, coags, lipase, amylase, chest x-ray, EKG. 1300 labs and x-ray reviewed. CBC grossly normal, CMP shows slightly decreased CO2 20, slightly elevated glucose 125. Magnesium normal 1.8. Troponin negative. Amylase and lipase normal. Coags normal. I called and spoke with Dr. Crain, cardiology, since patient is scheduled for a cardiac cath this Friday. He would like patient to stay today and do the cardiac cath today since her pain is still present. He would like hospitalist to admit and for patient to by NPO. Dr. Fitch, [facility] hospitalist, called for admission. He agrees to admit for observation to cardiac stepdown, he would like me to place bridge orders. Initial ECG Impression Date: June 17, 2022 Initial ECG Impression Time: 12:01 Initial ECG Rate: 105 Initial ECG Rhythm: S.Tach Initial ECG Intervals: Normal Initial ECG Impression: Normal Initial ECG Comparisson: Unchanged Diagnostic Imaging Diagonstic Imaging: Xray Plain Films/CT/US/NM/MRI: chest Comments [facility] [place], [place] NAME: TIERRA NOE [facility] REC#: [id number] PT STATUS: REG ER : 1975 PHYSICIAN: TOÑITO MAYBERRY APRN ADMIT DATE: 06/17/22/ER Draft Date of Exam:06/17/22 CHEST 1 VIEW, AP/PA ONLY INDICATION: Chest pain COMPARISON: 04/18/2022. Single AP view of the chest obtained. FINDINGS: Heart size and pulmonary vascularity are within normal limits, and the lungs are clear, bilaterally. IMPRESSION: Unremarkable chest. Dictated on workstation # [id number] Dict: 06/17/22 1238 Trans: 06/17/22 1244 CVB [id number] Interpreted by: PALLAVI ESPINOSA MD Electronically signed by: Departure Communication (Admissions) Time/Spoke to Admitting Phy: 13:00 Dr. Fitch, [facility] hospitalist, consulted for admission. Time/Spoke to Consulting Phy: 12:56 Dr. Crain, pilot boat operator, consulted. Impression Primary Impression: Chest pain Disposition: ADMITTED INPATIENT Condition: Stable Admissions Decision to Admit Reason: Admit from ER (General) Decision to Admit/Date: June 17, 2022 Time/Decision to Admit Time: 12:56 Departure-Patient Inst. Referrals: YASMEEN FITCH MD (PCP/Family) Primary Care Physician TOÑITO MAYBERRY APRN June 17, 2022 12:23
[2022-06-17 12:36] LABS: ALBUMIN 3.9 GM/DL (3.2-4.5); POTASSIUM 4.3 MMOL/L (3.6-5.0); PROTHROMBIN TIME PATIENT 13.4 SEC (12.2-14.7)
[2022-06-17 12:37] LABS: AMYLASE 41 U/L (25-125); CALCIUM 8.8 MG/DL (8.5-10.1)
[2022-06-17 12:38] LABS: TOTAL PROTEIN 6.8 GM/DL (6.4-8.2)
[2022-06-17 12:40] LABS: BILIRUBIN,TOTAL 0.3 MG/DL (0.1-1.0)
[2022-06-17 12:42] LABS: CREATININE SERUM 0.81 MG/DL (0.60-1.30)
[2022-06-17 12:45] LABS: MAGNESIUM 1.8 MG/DL (1.6-2.4)
--- NOTE | 2022-06-17 12:45 | Diagnostic Imaging Report ---
INDICATION: Chest pain COMPARISON: 04/18/2022. Single AP view of the chest obtained. FINDINGS: Heart size and pulmonary vascularity are within normal limits, and the lungs are clear, bilaterally. IMPRESSION: Unremarkable chest. Dictated by: Dictated on workstation # [id number]
[2022-06-17 12:46] LABS: LIPASE 16 U/L (8-78)
[2022-06-17] MEDS ORDERED: LIDOCAINE 1% INJ 20 ML VIAL ONE (13:30)
[2022-06-17] MEDS ORDERED: HEParin (CATH LAB) 2,000 ML IV ONE (13:30)
[2022-06-17] MEDS ORDERED: NS IV 1000 ML 1,000 ML ONE (13:30)
[2022-06-17] MEDS ORDERED: fentaNYL INJ 100 MCG/2 ML AMP IVP PRN (14:30)
[2022-06-17] MEDS ORDERED: ONDANSETRON 4 MG/2 ML (SDV) Z0FRAN IVP PRN (14:30)
[2022-06-17] MEDS ORDERED: CATHETER FLUSH 10 ML SYR IV PRN (14:30)
[2022-06-17] MEDS ORDERED: morphine INJ 4 MG/ML 1 ML (VIAL/SYRINGE) IVP PRN (14:30)
[2022-06-17] MEDS ORDERED: diphenhydrAMINE 50 MG/ML INJ (BENADRYL) IVP PRN (14:30)
[2022-06-17] MEDS ORDERED: PROCHLORPERAZINE 10 MG/2ML INJ (COMPAZINE) IV PRN (14:30)
[2022-06-17] MEDS ORDERED: ALPR1TAB7 PO (15:17)
[2022-06-17] MEDS ORDERED: TURM500C4 PO (15:17)
[2022-06-17] MEDS ORDERED: MAGN400T39 PO (15:17)
[2022-06-17] MEDS ORDERED: ASHW300C PO (15:17)
[2022-06-17] MEDS ORDERED: ASPI-1238 PO (15:17)
[2022-06-17] MEDS ORDERED: NIAC500T9 PO (15:17)
[2022-06-17] MEDS ORDERED: FLUO40CA PO (15:17)
[2022-06-17] MEDS ORDERED: SUMA100T3 PO (15:17)
[2022-06-17] MEDS ORDERED: LOSA50TA63 PO (15:17)
[2022-06-17] MEDS ORDERED: PAPA1TAB10 PO (15:17)
[2022-06-17] MEDS ORDERED: ARIP5TAB57 PO (15:17)
[2022-06-17] MEDS ORDERED: RT-ALBUTEROL SULF 2.5 MG/3 ML PRE-MIX VIAL INH PRN (16:00)
--- NOTE | 2022-06-17 16:13 | Consultation-Cardiology ---
HPI-Cardiology Cardiology Consultation Date of Consultation 06/17/22 Date of Admission Time Seen by Provider: 16:10 Indication: Chest pain HPI 46-year-old lady with history of hypertension, hyperlipidemia, coronary artery disease with abnormal stress test, she was scheduled for cardiac catheterization later this week. Started to have chest pain described as pressure in the retro sternal area, came into the emergency room for evaluation. Still having active chest pain. No shortness of breath. No acute EKG changes. No palpitation. Home Medications & Allergies Allergies: Coded Allergies: Penicillins (Verified Allergy, Unknown, 08/21/17) Reported by pt. Home Medication List Reviewed: Yes SGL-Xogiqp-Nsampn Hx Patient Social History Marital Status: Employed/Student: employed Smoking Status: Never a Smoker Recent Hopitalizations: No Have you traveled recently?: No Alcohol Use?: No Past Medical History Discussed below Family Medical History Significant Family History: Heart Disease Family History: Diabetes mellitus 19 MOTHER Review of Systems-General Review of Systems Constitutional: see HPI EENTM: see HPI, no symptoms reported Respiratory: see HPI, dyspnea on exertion Cardiovascular: see HPI, chest pain; No edema, No Hx of Intervention, No palpitations, No syncope, No vascular heart diseas, No other Gastrointestinal: no symptoms reported, see HPI Genitourinary: no symptoms reported, see HPI Musculoskeletal: no symptoms reported, see HPI Skin: no symptoms reported, see HPI Psychiatric/Neurological: No Symptoms Reported, See HPI Reviewed Test Results Reviewed Test Results Lab Laboratory Tests Test 06/17/22 12:12 Range/Units White Blood Count 9.7 4.3-11.0 10^3/uL Red Blood Count 4.01 3.80-5.11 10^6/uL Hemoglobin 12.5 11.5-16.0 g/dL Hematocrit 37 35-52 % Mean Corpuscular Volume 93 80-99 fL Mean Corpuscular Hemoglobin 31 25-34 pg Mean Corpuscular Hemoglobin Concent 34 32-36 g/dL Red Cell Distribution Width 12.6 10.0-14.5 % Platelet Count 322 130-400 10^3/uL Mean Platelet Volume 9.4 9.0-12.2 fL Immature Granulocyte % (Auto) 0 % Neutrophils (%) (Auto) 54 42-75 % Lymphocytes (%) (Auto) 38 12-44 % Monocytes (%) (Auto) 6 0-12 % Eosinophils (%) (Auto) 2 0-10 % Basophils (%) (Auto) 1 0-10 % Neutrophils # (Auto) 5.2 1.8-7.8 10^3/uL Lymphocytes # (Auto) 3.7 1.0-4.0 10^3/uL Monocytes # (Auto) 0.6 0.0-1.0 10^3/uL Eosinophils # (Auto) 0.2 0.0-0.3 10^3/uL Basophils # (Auto) 0.1 0.0-0.1 10^3/uL Immature Granulocyte # (Auto) 0.0 0.0-0.1 10^3/uL Prothrombin Time 13.4 12.2-14.7 SEC INR Comment 1.0 0.8-1.4 Activated Partial Thromboplast Time 27 24-35 SEC Sodium Level 138 135-145 MMOL/L Potassium Level 4.3 3.6-5.0 MMOL/L Chloride Level 107 98-107 MMOL/L Carbon Dioxide Level 20 L 21-32 MMOL/L Anion Gap 11 5-14 MMOL/L Blood Urea Nitrogen 15 7-18 MG/DL Creatinine 0.81 0.60-1.30 MG/DL Estimat Glomerular Filtration Rate 91 BUN/Creatinine Ratio 19 Glucose Level 125 H 70-105 MG/DL Calcium Level 8.8 8.5-10.1 MG/DL Corrected Calcium 8.9 8.5-10.1 MG/DL Magnesium Level 1.8 1.6-2.4 MG/DL Total Bilirubin 0.3 0.1-1.0 MG/DL Aspartate Amino Transf (AST/SGOT) 21 5-34 U/L Alanine Aminotransferase (ALT/SGPT) 35 0-55 U/L Alkaline Phosphatase 72 40-136 U/L Troponin I < 0.028 <0.028 NG/ML Total Protein 6.8 6.4-8.2 GM/DL Albumin 3.9 3.2-4.5 GM/DL Amylase Level 41 25-125 U/L Lipase 16 8-78 U/L Physical Exam Physical Exam Vital Signs Vital Signs - First Documented 06/17/22 11:57 Temp 37.5 Pulse 105 Resp 20 B/P (MAP) 127/56 (79) Pulse Ox 96 O2 Delivery Room Air Capillary Refill : Less Than 3 Seconds Height, Weight, BMI Height: 5'1.00" Weight: 194lbs. 0.0oz. 87.685287lv; 47.22 BMI Method:Stated General Appearance: No Apparent Distress, WD/WN Eyes: Bilateral Eye Normal Inspection, Bilateral Eye PERRL, Bilateral Eye EOMI HEENT: PERRL/EOMI, TMs Normal, Normal ENT Inspection, Pharynx Normal, Moist Mucous Membranes Neck: Normal Inspection, Supple Respiratory: Lungs Clear, Normal Breath Sounds, No Accessory Muscle Use, No Respiratory Distress, Other (Midsternal chest tender to palpation) Cardiovascular: Regular Rate, Rhythm Gastrointestinal: Normal Bowel Sounds, Soft, Tenderness (Mild epigastric region tenderness) Back: Normal Inspection, No CVA Tenderness, No Vertebral Tenderness Extremity: Normal Inspection, Normal Range of Motion Neurologic/Psychiatric: Alert, Normal Mood/Affect Skin: Normal Color, Warm/Dry Lymphatic: No Adenopathy A/P-Cardiology Admission Diagnosis Chest pain Coronary artery disease Hypertension Hyperlipidemia Assessment/Plan Chest pain nonspecific etiology, reporting chest pressure in the retrosternal area for the past 3 weeks, Twelve-lead EKG was done on April 18, 2022 showing normal sinus rhythm with good R wave progression, no ischemic changes. Multiple risk factors for coronary artery disease including hypertension, hyperlipidemia, family history of heart disease Exercise stress test done on June 12, 2022, patient was able to exercise for 4 minutes and 30 seconds on standard Jack protocol achieving 88% of maximal expected heart rate with hypertensive response to exercise peak blood pressure 215/98, breast attenuation with reversible ischemia involving the mid to apical anterior wall stress score 5, SDS 3, ejection fraction 60% Discussed the management plan recommended cardiac catheterization, I offered the cardiac catheterization later tonight versus early in the morning, patient prefer early in the morning to be done by Dr. Crain Hypertension, maintained on losartan 50 mg daily Restart home medication monitor blood pressure Hyperlipidemia, I will evaluate lipid profile and metabolic profile Generalized fatigue, dizziness, near syncope, plan to evaluate 2D echo. Multiple risk factors for sleep apnea, recommend sleep study Strong family history of heart disease with multiple family members with heart disease Mild obstructive sleep apnea, had a sleep study done in May 2022. She will be starting on CPAP in June 2022 Clinical Quality Measures AMI/AHF: ASA po Prior to arrival: JUSTIN Whitlock MD June 17, 2022 16:13
[2022-06-17] MEDS ORDERED: NITROGLYCERIN 0.4 MG/PATCH (NITRO-DUR) TD SCH (16:15)
[2022-06-17] MEDS ORDERED: PANTOPRAZOLE 40 MG (PROTONIX) TAB PO SCH (16:15)
[2022-06-17] MEDS ORDERED: ALPRAZolam 1 MG (XANAX) TAB PO PRN (16:15)
[2022-06-17] MEDS ORDERED: ASPIRIN 325 MG (5 GR) TABLET PO NR (16:30)
[2022-06-17] MEDS ORDERED: ENOXAPARIN 100 MG/1 ML (LOVENOX) SYR SC NR (16:30)
[2022-06-17] MEDS: NS IV 1000 ML 1,000 ML IV SCH (17:20)
--- NOTE | 2022-06-17 18:07 | History & Physicial ---
History of Present Illness History of Present Illness Reason for visit/HPI 46-year-old female presents to [facility] emergency department during the late morning of June 17, 2022 with retrosternal chest pain. She is currently undergoing cardiac workup and was scheduled for cardiac catheterization later next week. She does have known hypertension as well as increased LDL in the past as well as coronary artery disease. She also has a strong family history of heart disease. She has been treated for hiatal hernia in the past. Date of Admission June 17, 2022 at 13:31 Date Seen by a Provider: June 17, 2022 Time Seen by a Provider: 17:00 I consulted on this patient on 06/17/22 18:02 Attending Physician Butch Abbasi MD Admitting Physician Admitting Physician: Butch Abbasi MD Attending Physician: Butch Abbasi MD Consult Allergies and Home Medications Allergies Coded Allergies: Penicillins (Verified Allergy, Unknown, 08/21/17) Reported by pt. Patient Home Medication List Home Medication List Reviewed: Yes Alprazolam (Alprazolam) 1 Mg Tablet, 1 MG PO Q8H PRN for ANXIETY, (Reported) Entered as Reported by: GLADYS GALINDO on 06/17/221516 Last Action: Continued Aripiprazole (Aripiprazole) 5 Mg Tablet, 5 MG PO DAILY, (Reported) Entered as Reported by: GLADYS GALINDO on 06/17/221516 Last Action: Reviewed Ashwagandha Root Extract (Ashwagandha Root Extract) 300 Mg Capsule, 600 MG PO DAILY, (Reported) Entered as Reported by: GLADYS GALINDO on 06/17/221516 Last Action: Reviewed Aspirin (Aspirin EC) 81 Mg Tablet.dr, 81 MG PO DAILY, (Reported) Entered as Reported by: GLADYS GALINDO on 06/17/221516 Last Action: Reviewed Fluoxetine HCl (Fluoxetine HCl) 40 Mg Capsule, 40 MG PO DAILY, (Reported) Entered as Reported by: GLADYS GALINDO on 06/17/221516 Last Action: Converted Losartan Potassium (Losartan Potassium) 50 Mg Tablet, 50 MG PO DAILY, (Reported) Entered as Reported by: GLADYS GALINDO on 06/17/221516 Last Action: Continued Magnesium Oxide (Magnesium) 400 Mg Magnesium Tablet, 400 MG PO DAILY, (Reported) Entered as Reported by: GLADYS GALINDO on 06/17/221516 Last Action: Reviewed Niacin (Niacin) 500 Mg Tablet, 500 MG PO DAILY, (Reported) Entered as Reported by: GLADYS GALINDO on 06/17/221516 Last Action: Reviewed Papaya (Papaya Enzyme) 1 Each Tablet, 3 EACH PO DAILY, (Reported) Entered as Reported by: GLADYS GALINDO on 06/17/221516 Last Action: Reviewed Sumatriptan Succinate (Sumatriptan Succinate) 100 Mg Tablet, 100 MG PO UD PRN for MIGRAINE, (Reported) Entered as Reported by: GLADYS GALINDO on 06/17/221516 Last Action: Reviewed Turmeric/Turmeric Root Extract (Turmeric 500 mg Capsule) 450 Mg-50 Mg Capsule, 1 EACH PO DAILY, (Reported) Entered as Reported by: GLADYS GALINDO on 06/17/221516 Last Action: Reviewed Discontinued Medications Alprazolam (Xanax) 1 Mg Tablet, 1 MG PO Q8H PRN for ANXIETY, (Reported) Discontinued Reason: No Longer Taking Entered as Reported by: GIGI KEYES on 08/09/16 1411 Last Action: Discontinued Aripiprazole (Abilify) 10 Mg Tablet, 10 MG PO DAILY, (Reported) Discontinued Reason: No Longer Taking Entered as Reported by: CHANDAN LUCIANO on 08/21/171121 Last Action: Discontinued Docusate Sodium (Docusate Sodium) 100 Mg Capsule, 100 MG PO BID PRN for CONSTIPATION-1ST LINE Discontinued Reason: No Longer Taking Prescribed by: BETHANY RAMOS on 08/28/17926 Last Action: Discontinued Estradiol (Estrace Tablet) 1 Mg Tablet, 1 MG PO DAILY, (Reported) Discontinued Reason: No Longer Taking Entered as Reported by: CHANDAN LUCIANO on 08/21/171121 Last Action: Discontinued Fluoxetine HCl (Prozac) 20 Mg Capsule, 20 MG PO DAILY, (Reported) Discontinued Reason: No Longer Taking Entered as Reported by: CHANDAN LUCIANO on 08/21/171121 Last Action: Discontinued Hydrocodone Bit/Acetaminophen (Lortab 5 Mg Tablet) 1 Tab Tab, 1-2 TAB PO Q4H PRN for PAIN-MODERATE TO SEVERE Discontinued Reason: No Longer Taking Prescribed by: BETHANY RAMOS on 08/28/17926 Last Action: Discontinued Ibuprofen (Ibu) 600 Mg Tablet, 600 MG PO Q6H Discontinued Reason: No Longer Taking Prescribed by: BETHANY RAMOS on 08/28/17926 Last Action: Discontinued Sumatriptan Succinate (Imitrex) 50 Mg Tab, 50 MG PO PRN, (Reported) Discontinued Reason: No Longer Taking Entered as Reported by: CHANDAN LUCIANO on 08/21/171121 Last Action: Discontinued Past Cuofhck-Xommwz-Bchlec Hx Patient Social History Marrital Status: Employed/Student: employed Alcohol Beverage of Choice: Other Smoking Status: Never a Smoker Former Smoker, Quit: Aug 22, 1995 Recent Hopitalizations: No Have you traveled recently?: No Alcohol Use?: No Pt feels they are or have been: No Seasonal Allergies Seasonal Allergies: No Surgeries Yes ( X2) Gallbladder, Hysterectomy Respiratory No Cardiovascular Yes (PVC's) Neurological Yes Headaches /Migraines Reproductive System Hx Reproductive Disorders: No Sexually Transmitted Disease: No HIV/AIDS: No 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 Gastrointestinal Yes (RECTOCELE) Musculoskeletal No Endocrine History of Endocrine Disorders: No HEENT Loss of Vision: Bilateral Hearing Impairment: Denies Cancer No Psychosocial History of Psychiatric Problem: Yes Behavioral Health Disorders: Anxiety, Depression Integumentary History of Skin or Integumenta: No Blood Transfusions History of Blood Disorders: No Adverse Reaction to a Blood Tr: No (N/A) Family Medical History Significant Family History: Heart Disease Family Hx: Diabetes mellitus 19 MOTHER Review of Systems Constitutional: see HPI Physical Exam Vital Signs Vital Signs - First Documented 06/17/22 11:57 Temp 37.5 Pulse 105 Resp 20 B/P (MAP) 127/56 (79) Pulse Ox 96 O2 Delivery Room Air Capillary Refill : Less Than 3 Seconds Height, Weight, BMI Height: 5'1.00" Weight: 194lbs. 0.0oz. 87.491740ep; 47.22 BMI Method:Stated General Appearance: Anxious (Mildly) Eyes: Bilateral Eye Normal Inspection HEENT: Pharynx Normal Neck: Supple Respiratory: Lungs Clear Cardiovascular: Regular Rate, Rhythm, No Murmur; No Tachycardia Gastrointestinal: Non Tender, Soft Rectal: Deferred Back: Normal Inspection Extremity: Normal Capillary Refill Neurologic/Psychiatric: Alert, Oriented x3 Skin: Normal Color Comments [facility] [place], [place] NAME: TIERRA NOE [facility] REC#: [id number] PT STATUS: REG ER : 1975 PHYSICIAN: TOÑITO MAYBERRY APRN ADMIT DATE: 06/17/22/ER Draft Date of Exam:06/17/22 CHEST 1 VIEW, AP/PA ONLY INDICATION: Chest pain COMPARISON: 04/18/2022. Single AP view of the chest obtained. FINDINGS: Heart size and pulmonary vascularity are within normal limits, and the lungs are clear, bilaterally. IMPRESSION: Unremarkable chest. Dictated on workstation # [id number] Dict: 06/17/22 1238 Trans: 06/17/22 1244 CVB [id number] Interpreted by: PALLAVI ESPINOSA MD Electronically signed by: Assessment/Plan Assessment and Plan 1. Chest pain suspicious for angina -patient is admitted for observation on cardiac stepdown -Emergency care provider has contacted oil truck driver Dr Crain and orders have been noted by him. -It appears that we are going to have cardiac catheterization in the morning of June 18, 2022 2. Hypertension -She is being somewhat controlled on losartan 50 mg daily. 3. Hyperlipidemia increased LDL -She is not taking statins. She is on niacin 500 mg daily. -Lipid panel to be evaluated Admission Diagnosis 1. Chest pain suspicious for angina 2. Hypertension 3. Hyperlipidemia increased LDL Admission Status: Observation Reason for Inpatient Admission: Cardiology consultation. Further cardiac workup Clinical Quality Measures AMI/AHF: ASA po Prior to arrival: BUTCH Benson MD June 17, 2022 18:07
[2022-06-17] MEDS ORDERED: NITROGLYCERIN PATCH REMOVAL TP SCH (21:00)
[2022-06-17] MEDS: CATHETER FLUSH 10 ML SYR IV SCH (21:20)
[2022-06-18 00:05] VITALS: BP 101/71
[2022-06-18 01:00] VITALS: BP 97/78
[2022-06-18 02:00] VITALS: BP 99/58
[2022-06-18] MEDS: NS IV 1000 ML 1,000 ML IV SCH (03:02)
[2022-06-18 05:30] LABS: BASOPHILS % (AUTO) 0 % (0-10); EOSINOPHILS # (AUTO) 0.2 10^3/uL (0.0-0.3); EOSINOPHILS % (AUTO) 2 % (0-10); HEMATOCRIT 37 % (35-52); HEMOGLOBIN 11.9 g/dL (11.5-16.0); LYMPHOCYTES # (AUTO) 3.2 10^3/uL (1.0-4.0); LYMPHOCYTES % (AUTO) 40 % (12-44); MEAN CORPUSCULAR HEMOGLOBIN 31 pg (25-34); MEAN CORPUSCULAR HGB CONC 33 g/dL (32-36); MEAN CORPUSCULAR VOLUME 94 fL (80-99); MEAN PLATELET VOLUME 9.5 fL (9.0-12.2); MONOCYTES # (AUTO) 0.6 10^3/uL (0.0-1.0); MONOCYTES % (AUTO) 8 % (0-12); NEUTROPHILS % (AUTO) 50 % (42-75); PLATELET COUNT 289 10^3/uL (130-400)
[2022-06-18] MEDS: CATHETER FLUSH 10 ML SYR IV SCH (05:41)
[2022-06-18 05:47] LABS: BUN/CREATININE RATIO 23; CALCIUM 7.9 MG/DL (8.5-10.1); CARBON DIOXIDE 22 MMOL/L (21-32); CHLORIDE 110 MMOL/L (98-107); CREATININE SERUM 0.77 MG/DL (0.60-1.30); GFR ESTIMATED 97; GLUCOSE 112 MG/DL (70-105); POTASSIUM 4.2 MMOL/L (3.6-5.0); SODIUM 139 MMOL/L (135-145)
[2022-06-18] MEDS ORDERED: HEParin 1000 UNIT/ML (10ML VIAL) FOR BOLUS ONE (06:50)
[2022-06-18] MEDS ORDERED: fentaNYL INJ 100 MCG/2 ML AMP ONE (06:50)
[2022-06-18] MEDS ORDERED: NITRO DRIP 25000 MCG/D5W 250 ML IV ONE (06:50)
[2022-06-18] MEDS ORDERED: VERAPAMIL 5 MG/2 ML (CALAN) VIAL IV ONE (06:50)
[2022-06-18] MEDS ORDERED: MIDAZOLAM 5 MG/5 ML (VERSED) VIAL ONE (06:50)
[2022-06-18] MEDS ORDERED: LOSARTAN 50 MG (COZAAR) TAB PO SCH (09:00)
[2022-06-18] MEDS ORDERED: FLUoxetine HCL 20 MG (PROzac) CAP PO SCH (09:00)
[2022-06-18] MEDS ORDERED: ASPIRIN E.C. 81 MG (ECOTRIN) TAB PO SCH (09:00)
[2022-06-18] MEDS ORDERED: NON-FORMULARY MEDICATION 1 EA EA (Fluoxetine HCl 40 MG) PO SCH (09:00)
--- NOTE | 2022-06-18 16:17 | Cardiac Procedure Note-CS/ASA ---
Pre-Procedure Note Pre-Op Procedure Note Date of Available H&P: June 18, 2022 Date H&P Reviewed: June 18, 2022 Time H&P Reviewed: 07:00 History & Physical: H&P Reviewed, Patient Examed, No changes noted Pre-Operative Diagnosis: CAD Moderate Sedation PreProcedure Time 07:00 ASA Score 3 Airway Lungs Heart ASA score ASA 1: a normal healthy patient ASA 2: a patient with a mild systemic disease (mid diabetes, controlled hypertension, obesity ASA 3: a patient with a severe systemic disease that limits activity (angina, COPD, prior Myocardial infarction) ASA 4: a patient with an incapacitating disease that is a constant threat to life (CHF, renal failure) ASA 5: a moribund patient not expected to survive 24 hrs. (ruptured aneurysm) ASA 6: a declared brain- patient whose organs are being harvested. For emergent operations, add the letter E after the classification Mallampati Classification Grade 3 Sedation Plan Analgesia, Amnesia, Plan communicated to team members, Discussed options with patient/fam, Discussed risks with patient/fam The patient is an appropriate candidate to undergo the planned procedure, sedation, and anesthesia. The patient immediately re-assessed prior to indication. JUSTIN PICKERING MD June 18, 2022 16:17
--- NOTE | 2022-06-18 16:19 | Cardiac Cath Report ---
Cardiac Cath Report Physician (s)/Academic Department Chair (s) Physician JUSTIN PICKERING MD Pre-Procedure Diagnosis Pre-Procedure Diagnosis: CAD Post-Procedure Note Procedure Start Date: June 18, 2022 Name of Procedure: Left heart catheterization Findings/Procedure Note PROCEDURE NOTE: 46-year-old lady with recurrent chest pain, admitted through the emergency room with acute chest pain, has an abnormal stress test, scheduled for cardiac catheterization possible PTCA. After explaining the procedure to the patient, all pros and cons were explained, all questions were answered. The patient signed the consent and then she was placed in the cardiac catheterization laboratory. Groin was prepped in SL fashion local anesthesia was used. Sheath placed in the right radial artery, [place] catheter was advanced to the left ventricular cavity, pressure was measured. Pullback LV to aorta was done, engage the right and left coronary system, angiogram was done. At the end of the procedure the sheath was removed. Vascular band was used FINDINGS: Hemodynamics LV 109/23, end-diastolic pressure of 23 Aorta 110/79 mean of 76 ANATOMY: Left Main is free of obstructive disease Left Anterior Descending is free of obstructive disease Left Circumflex is free of obstructive disease Right Coronary Artery is dominant artery, free of obstructive disease LV Gram was not done, pressure was measured CONCLUSION: Dominant right coronary system with no obstructive disease Mildly elevated left ventricular end-diastolic pressure DISCUSSION AND RECOMMENDATION: Abnormal stress test is probably due to extracardiac attenuation, chest pain is probably noncardiac Anesthesia Type: Conscious Sedation Estimated blood loss (mL): 10 ml Contrast Amount: 25 ml Total Radiation Dose: 269 mGy Post-Procedure Diagnosis Post-operative diagnosis: Chest pain Shortness of breath Hypertension Hyperlipidemia JUSTIN PICKERING MD June 18, 2022 16:19
--- NOTE | 2022-06-18 16:20 | Cardiology Progress Note ---
Subjective Date Seen by Provider: June 18, 2022 Time Seen by Provider: 08:00 Subjective/Events-last exam Patient was seen at bedside, reassured, cardiac catheterization showed no obstructive disease Review of Systems General: No Chills, No Night Sweats, No Fatigue, No Malaise, No Appetite, No Other HEENT: No Head Aches, No Visual Changes, No Eye Pain, No Ear Pain, No Dysphasia, No Sinus Congestion, No Post Nasal Drip, No Sore Throat, No Other Pulmonary: No Dyspnea, No Cough, No Pleuritic Chest Pain, No Other Cardiovascular: No: Chest Pain, Palpitations, Orthopnea, Paroxysmal Noc. Dyspnea, Edema, Lt Headedness, Other Objective-Cardiology Exam Last Set of Vital Signs Vital Signs 06/18/22 06/18/22 02:00 04:00 Temp 36.3 Pulse 80 Resp 9 B/P (MAP) 99/58 (75) Pulse Ox 95 O2 Delivery Room Air I&O Intake and Output 06/18/22 00:00 Intake Total 250 ml Balance 250 ml Intake Oral 250 ml # Voids 3 Daily Weight Change No General: Alert, Oriented X3, Cooperative HEENT: Atraumatic, PERRLA Neck: Supple, No JVD, No Thyromegaly Lungs: Clear to Auscultation, Normal Air Movement Heart: Regular Rate, Normal S1, Normal S2, No Murmurs Abdomen: Normal Bowel Sounds, Soft, No Tenderness, No Hepatosplenomegaly, No Masses Extremities: No Clubbing, No Cyanosis, No Edema, Normal Pulses, No Tenderness/Swelling Skin: No Rashes, No Breakdown, No Significant Lesion Neuro: Normal Gait, Normal Speech, Strength at 5/5 X4 Ext, Normal Tone, Sensation Intact Psych/Mental Status: Mental Status NL, Mood NL Results Lab Laboratory Tests 06/18/22 05:09 A/P-Cardiology Admission Diagnosis Chest pain Coronary artery disease Hypertension Hyperlipidemia Assessment/Plan Chest pain nonspecific etiology, reporting chest pressure in the retrosternal area for the past 3 weeks, Twelve-lead EKG was done on April 18, 2022 showing normal sinus rhythm with good R wave progression, no ischemic changes. Multiple risk factors for coronary artery disease including hypertension, hyperlipidemia, family history of heart disease Exercise stress test done on June 12, 2022, patient was able to exercise for 4 minutes and 30 seconds on standard Jack protocol achieving 88% of maximal expected heart rate with hypertensive response to exercise peak blood pressure 215/98, breast attenuation with reversible ischemia involving the mid to apical anterior wall stress score 5, SDS 3, ejection fraction 60% Cardiac catheterization carried out on June 18, 2022 with no obstructive disease, patient was reassured. Chest pain is probably noncardiac Hypertension, maintained on losartan 50 mg daily Restart home medication monitor blood pressure Hyperlipidemia, I will evaluate lipid profile and metabolic profile Generalized fatigue, dizziness, near syncope, plan to evaluate 2D echo. Multiple risk factors for sleep apnea, recommend sleep study Strong family history of heart disease with multiple family members with heart disease Mild obstructive sleep apnea, had a sleep study done in May 2022. She will be starting on CPAP in June 2022 Okay for discharge and follow-up as an outpatient JUSTIN PICKERING MD June 18, 2022 16:20
--- NOTE | 2022-06-18 18:35 | Short Stay Summary ---
History of Present Illness History of Present Illness Reason for visit/HPI 46-year-old female presents to [facility] emergency department during the late morning of June 17, 2022 with retrosternal chest pain. She is currently undergoing cardiac workup and was scheduled for cardiac catheterization later next week. She does have known hypertension as well as increased LDL in the past as well as coronary artery disease. She also has a strong family history of heart disease. She has been treated for hiatal hernia in the past. Date of Admission June 17, 2022 at 13:31 Date of Discharge June 18, 2022 Time Seen by Provider: 06:50 Attending Physician Butch Fitch MD Admitting Physician Admitting Physician: Butch Fitch MD Attending Physician: Butch Fitch MD Consult Allergies and Home Medications Allergies Coded Allergies: Penicillins (Verified Allergy, Unknown, 08/21/17) Reported by pt. Patient Home Medication List Home Medication List Reviewed: Yes Alprazolam (Alprazolam) 1 Mg Tablet, 1 MG PO Q8H PRN for ANXIETY, (Reported) Entered as Reported by: GLADYS GALINDO on 06/17/221516 Last Action: Continued Aripiprazole (Aripiprazole) 5 Mg Tablet, 5 MG PO DAILY, (Reported) Entered as Reported by: GLADYS GALINDO on 06/17/221516 Last Action: Reviewed Ashwagandha Root Extract (Ashwagandha Root Extract) 300 Mg Capsule, 600 MG PO DAILY, (Reported) Entered as Reported by: GLADYS GALINDO on 06/17/221516 Last Action: Reviewed Aspirin (Aspirin EC) 81 Mg Tablet.dr, 81 MG PO DAILY, (Reported) Entered as Reported by: GLADYS GALINDO on 06/17/221516 Last Action: Reviewed Fluoxetine HCl (Fluoxetine HCl) 40 Mg Capsule, 40 MG PO DAILY, (Reported) Entered as Reported by: GLADYS GALINDO on 06/17/221516 Last Action: Converted Losartan Potassium (Losartan Potassium) 50 Mg Tablet, 50 MG PO DAILY, (Reported) Entered as Reported by: GLADYS GALINDO on 06/17/221516 Last Action: Continued Magnesium Oxide (Magnesium) 400 Mg Magnesium Tablet, 400 MG PO DAILY, (Reported) Entered as Reported by: GLADYS GALINDO on 06/17/221516 Last Action: Reviewed Niacin (Niacin) 500 Mg Tablet, 500 MG PO DAILY, (Reported) Entered as Reported by: GLADYS GALINDO on 06/17/221516 Last Action: Reviewed Papaya (Papaya Enzyme) 1 Each Tablet, 3 EACH PO DAILY, (Reported) Entered as Reported by: GLADYS GALINDO on 06/17/221516 Last Action: Reviewed Sumatriptan Succinate (Sumatriptan Succinate) 100 Mg Tablet, 100 MG PO UD PRN for MIGRAINE, (Reported) Entered as Reported by: GLADYS GALINDO on 06/17/221516 Last Action: Reviewed Turmeric/Turmeric Root Extract (Turmeric 500 mg Capsule) 450 Mg-50 Mg Capsule, 1 EACH PO DAILY, (Reported) Entered as Reported by: GLADYS GALINDO on 06/17/221516 Last Action: Reviewed Discontinued Medications Alprazolam (Xanax) 1 Mg Tablet, 1 MG PO Q8H PRN for ANXIETY, (Reported) Discontinued Reason: No Longer Taking Entered as Reported by: GIGI KEYES on 08/09/16 1411 Last Action: Discontinued Aripiprazole (Abilify) 10 Mg Tablet, 10 MG PO DAILY, (Reported) Discontinued Reason: No Longer Taking Entered as Reported by: CHANDAN LUCIANO on 08/21/171121 Last Action: Discontinued Docusate Sodium (Docusate Sodium) 100 Mg Capsule, 100 MG PO BID PRN for CONSTIPATION-1ST LINE Discontinued Reason: No Longer Taking Prescribed by: BETHANY RAMOS on 08/28/17926 Last Action: Discontinued Estradiol (Estrace Tablet) 1 Mg Tablet, 1 MG PO DAILY, (Reported) Discontinued Reason: No Longer Taking Entered as Reported by: CHANDAN LUCIANO on 08/21/171121 Last Action: Discontinued Fluoxetine HCl (Prozac) 20 Mg Capsule, 20 MG PO DAILY, (Reported) Discontinued Reason: No Longer Taking Entered as Reported by: CHANDAN LUCIANO on 08/21/171121 Last Action: Discontinued Hydrocodone Bit/Acetaminophen (Lortab 5 Mg Tablet) 1 Tab Tab, 1-2 TAB PO Q4H PRN for PAIN-MODERATE TO SEVERE Discontinued Reason: No Longer Taking Prescribed by: BETHANY RAMOS on 08/28/17926 Last Action: Discontinued Ibuprofen (Ibu) 600 Mg Tablet, 600 MG PO Q6H Discontinued Reason: No Longer Taking Prescribed by: BETHANY RAMOS on 08/28/17926 Last Action: Discontinued Sumatriptan Succinate (Imitrex) 50 Mg Tab, 50 MG PO PRN, (Reported) Discontinued Reason: No Longer Taking Entered as Reported by: CHANDAN LUCIANO on 08/21/17 112 Last Action: Discontinued Past Wcxmuza-Gsjlhs-Gymaok Hx Patient Social History Marrital Status: Employed/Student: employed Alcohol Beverage of Choice: Other Smoking Status: Never a Smoker Former Smoker, Quit: Aug 22, 1995 Recent Hopitalizations: No Have you traveled recently?: No Alcohol Use?: No Pt feels they are or have been: No Seasonal Allergies Seasonal Allergies: No Surgeries Yes ( X2) Gallbladder, Hysterectomy Respiratory No Cardiovascular Yes (PVC's) Neurological Yes Headaches /Migraines Reproductive System Hx Reproductive Disorders: No Sexually Transmitted Disease: No 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 Gastrointestinal Yes (RECTOCELE) Musculoskeletal No Endocrine History of Endocrine Disorders: No HEENT Loss of Vision: Bilateral Hearing Impairment: Denies Cancer No Psychosocial History of Psychiatric Problem: Yes Behavioral Health Disorders: Anxiety, Depression Integumentary History of Skin or Integumenta: No Blood Transfusions History of Blood Disorders: No Adverse Reaction to a Blood Tr: No (N/A) Family Medical History Significant Family History: Heart Disease Family Hx: Diabetes mellitus 19 MOTHER Review of Systems Constitutional: see HPI Physical Exam Vital Signs Vital Signs - First Documented 06/17/22 11:57 Temp 37.5 Pulse 105 Resp 20 B/P (MAP) 127/56 (79) Pulse Ox 96 O2 Delivery Room Air Capillary Refill : Less Than 3 Seconds Height, Weight, BMI Height: 5'1.00" Weight: 194lbs. 0.0oz. 87.088264mc; 46.71 BMI Method:Stated General Appearance: No Apparent Distress Neck: Supple Respiratory: Lungs Clear Cardiovascular: Regular Rate, Rhythm Gastrointestinal: Soft; No Distended, No Guarding Back: Normal Inspection Extremity: Normal Capillary Refill Neurologic/Psychiatric: Alert, Oriented x3 Clinical Quality Measures Admission Status Admission Dx 1. Chest pain suspicious for angina 2. Hypertension 3. Hyperlipidemia increased LDL AMI/AHF: ASA po Prior to arrival: No Short Stay Diagnosis Discharge Diagnosis-Short Stay Admission Diagnosis: 1. Chest pain suspicious for angina 2. Hypertension 3. Hyperlipidemia increased LDL Final Discharge Diagnosis: 1. Chest pain not likely cardiac. Leaning more towards dyspepsia 2. Hypertension 3. Hyperlipidemia 4. Obstructive sleep apnea Conclusion Labs Laboratory Tests 06/18/22 05:09: White Blood Count 8.0, Red Blood Count 3.90, Hemoglobin 11.9, Hematocrit 37, Mean Corpuscular Volume 94, Mean Corpuscular Hemoglobin 31, Mean Corpuscular Hemoglobin Concent 33, Red Cell Distribution Width 12.7, Platelet Count 289, Mean Platelet Volume 9.5, Immature Granulocyte % (Auto) 0, Neutrophils (%) (Auto) 50, Lymphocytes (%) (Auto) 40, Monocytes (%) (Auto) 8, Eosinophils (%) (Auto) 2, Basophils (%) (Auto) 0, Neutrophils # (Auto) 4.0, Lymphocytes # (Auto) 3.2, Monocytes # (Auto) 0.6, Eosinophils # (Auto) 0.2, Basophils # (Auto) 0.0, Immature Granulocyte # (Auto) 0.0, Sodium Level 139, Potassium Level 4.2, Chloride Level 110H, Carbon Dioxide Level 22, Anion Gap 7, Blood Urea Nitrogen 18, Creatinine 0.77, Estimat Glomerular Filtration Rate 97, BUN/Creatinine Ratio 23, Glucose Level 112H, Calcium Level 7.9L, Troponin I < 0.028 Microbiology 06/17/22 MRSA Screen - Final, Complete MRSA not isolated Conclusion/Plan patient was admitted for observation on June 17, 2022. She was monitored on the cardiac stepdown floor through the entirety of June 17 and 2. She was also seen by Dr. Crain medical assistant ob gyn and ultimately had cardiac catheterization on June 18, 2022. There was no significant coronary lesions noted by his note. The etiology of her chest pain was felt to be likely noncardiac. She had previously been started on PPI and this will be recommended to be continued for now. She will follow up in office within 2 weeks for further discussion of the dyspepsia and if necessary for further workup. BUTCH FITCH MD June 18, 2022 18:35
== END 2022-06-18 14:40 | disposition home or self-care (01) ==
LOC: EDUNIT# 11:54 → ER 11:56 → CSD 13:31
PROVIDERS: ADMIT Family Medicine; ATTEND Family Medicine
DX: R07.2 Precordial pain (principal); I10 Essential (primary) hypertension; I25.10 Atherosclerotic heart disease of native coronary artery without angina pectoris; E78.5 Hyperlipidemia, unspecified; G47.33 Obstructive sleep apnea (adult) (pediatric); R55 Syncope and collapse; R42 Dizziness and giddiness; Z79.899 Other long term (current) drug therapy
CPT/HCPCS: 71045; 80048; 80053; 82150; 83690; 83735; 84484 ×2; 85025 ×2; 85610; 85730; 87081; 93005 ×2; 93041; 93458; 94760; 99284; C1894; 36415; 96361; 96372; 96375

== ENCOUNTER 2022-07-24 06:31 | Outpatient (CLI) | payer BC ==
[~2022-07-24] VITALS: Ht 154.9 cm; Wt 108.9 kg
[~2022-07-24 06:31] MED LIST changes: +ALPR1TAB7 PO; +ARIP5TAB57 PO; +ASHW300C PO; +ASPI-1238 PO; +FLUO40CA PO; +LOSA50TA63 PO; +MAGN400T39 PO; +NIAC500T9 PO; +PAPA1TAB10 PO; +SUMA100T3 PO; +TURM500C4 PO
[2022-07-24] MEDS ORDERED: PANT40TA2 PO (16:34)
[2022-07-24] MEDS ORDERED: NF-CRES10T PO (16:34)
== END 2022-07-24 16:41 | disposition home or self-care (01) ==
LOC: PREOP 06:31
PROVIDERS: ATTEND Surgery
DX: Z01.818 Encounter for other preprocedural examination (principal)

== ENCOUNTER 2022-08-02 12:18 | Day surgery (SDC) | payer BC ==
[~2022-08-02] VITALS: Ht 154 cm; Wt 108.9 kg
[~2022-08-02 12:18] MED LIST changes: +NF-CRES10T PO; +PANT40TA2 PO
[2022-08-02] MEDS ORDERED: LACTATED RINGERS 1,000 ML IV STA (12:39)
[2022-08-02] MEDS ORDERED: HURRICAINE EXT TUBE (BENZOCAINE) XX PRN (12:45)
[2022-08-02 12:53] VITALS: BP 132/75
--- NOTE | 2022-08-02 13:08 | Progress Note-Pre Operative ---
Pre-Operative Progress Note Date H&P Reviewed: Aug 02, 2022 Time H&P Reviewed: 13:07 History & Physical: H&P Reviewed, Patient Examed, No changes noted Pre-Operative Diagnosis: chronic diarrhea, gerd, dysphagia TRAVON BRITTON DO Aug 02, 2022 13:08
[2022-08-02] MEDS ORDERED: MIDAZOLAM 2 MG/2 ML (VERSED) VIAL ONE (13:30)
[2022-08-02] MEDS ORDERED: PROPOFOL INJECTION 50 ML IV ONE (13:30)
[2022-08-02] MEDS ORDERED: proPOfol 200 MG/20 ML (DIPRIVAN) VIAL IV ONE (14:00)
[2022-08-02 14:05] VITALS: BP 116/60
[2022-08-02 14:10] VITALS: BP 117/56
--- NOTE | 2022-08-02 14:10 | Anesthesia-General Post-Op ---
MAC Patient Condition Mental Status/LOC: Same as Preop Cardiovascular: Satisfactory Nausea/Vomiting: Absent Respiratory: Satisfactory Pain: Controlled Complications: Absent Post Op Complications Complications None Follow Up Care/Instructions Patient Instructions None needed. Anesthesiology Discharge Order Discharge Order Patient is doing well, no complaints, stable vital signs, no apparent adverse anesthesia problems. No complications reported per nursing. RUKHSANA NEGRON CRNA Aug 02, 2022 14:09
--- NOTE | 2022-08-02 14:11 | Discharge Inst-Simple/Standard ---
Discharge Inst-Standard Patient Instructions/Follow Up Plan of Care/Instructions/FU: 2 weeks Trisha Activity as Tolerated: Yes Discharge Diet: Regular Diet (high fiber) TRAVON BRITTON DO Aug 02, 2022 14:11
--- NOTE | 2022-08-02 14:16 | Progress Note-Post Operative ---
Post-Operative Progess Note Surgeon (s)/Hydraulic Jack Mechanic (s) Surgeon TRAVON BRITTON DO Hydraulic Jack Mechanic: na Pre-Operative Diagnosis chronic diarrhea, gerd, dysphagia Post-Operative Diagnosis normal egd and colonoscopy Procedure & Operative Findings Date of Procedure 08/02/22 Procedure Performed/Findings egd c biospies, colonoscopy with random cold biopsies Anesthesia Type per financial analyst accountant Estimated Blood Loss Estimated blood loss (mL): none Specimens/Packing Specimens Removed antrum, ge, colon TRAVON Her DO Aug 02, 2022 14:16
[2022-08-02 14:46] VITALS: BP 117/56
--- NOTE | 2022-08-02 21:43 | OPERATIVE REPORT ---
DATE OF SERVICE: 08/02/2022 PREOPERATIVE DIAGNOSES: Chronic diarrhea, gastroesophageal reflux disease, dysphagia. POSTOPERATIVE DIAGNOSIS: Normal esophagogastroduodenoscopy and colonoscopy. SURGEON: Travon Rico DO ANESTHESIA: Per LEAD GENERATION REPRESENTATIVE. ESTIMATED BLOOD LOSS: None. COMPLICATIONS: None. PROCEDURES: EGD with biopsies, colonoscopy with random cold biopsies. INDICATIONS: The patient is a 46-year-old female with chronic diarrhea, GERD, and dysphagia symptoms. She understands risks and benefits of procedure and wished to proceed. Consent was signed in chart. DESCRIPTION OF PROCEDURE: The patient was taken to endoscopy suite, placed in left lateral recumbent position. Timeout was performed. Scope was inserted in the mouth, down the esophagus, stomach, into the duodenum without difficulty. No polyps, masses or ulcerations within the duodenum. Scope was slowly retracted back into stomach where it was further insufflated. No polyps, masses or ulcerations. Biopsy of the antrum was obtained. Scope was retroflexed noting no other pathology. Scope was returned to its normal position, slowly withdrawn until distal esophagus. Biopsy of GE junction was obtained. No polyps, masses or ulcerations. Scope was slowly retracted back until completely remove noting no other pathology. Digital rectal exam was performed. No palpable polyps, masses or ulcerations. Scope was inserted in the rectum, advanced all the way to the cecum with minimal difficulty. Prep was adequate. Scope was slowly retracted back. No polyps, masses, or ulcerations within the cecum, ascending, transverse, descending and sigmoid colon. Random cold biopsies were obtained throughout the colon. Once in the rectum, scope was retroflexed noting no other pathology. Scope was returned to its normal position, slowly withdrawn until completely removed. The patient tolerated the procedure well without complications, taken to recovery room in stable condition. RECOMMENDATIONS: The patient will need repeat colonoscopy in 10 years unless family history of colon cancer, which will then be 5 years. Any issues before that, be seen at that time. We will await biopsy results of the colon for further recommendations. The patient with dysphagia and GERD symptoms, EGD appeared normal, but took some biopsies, await biopsy results. If continues to have dysphagia symptoms, would get barium swallow for further evaluation. The patient will follow up in a couple of weeks to go over pathology. Job ID: [id number] DocumentID: [id number] Dictated Date: 08/02/2022 14:21:23 Zipper Slide Attacher Date: 08/02/2022 21:40:00 Dictated By: TRAVON RICO DO
== END 2022-08-02 14:45 | disposition home or self-care (01) ==
LOC: ENDO 12:18
PROVIDERS: ATTEND Surgery
DX: K21.00 Gastro-esophageal reflux disease with esophagitis, without bleeding (principal); K29.50 Unspecified chronic gastritis without bleeding; K31.89 Other diseases of stomach and duodenum; K63.89 Other specified diseases of intestine; K52.9 Noninfective gastroenteritis and colitis, unspecified; E66.01 Morbid (severe) obesity due to excess calories; Z68.42 Body mass index [BMI] 45.0-49.9, adult; G47.33 Obstructive sleep apnea (adult) (pediatric); Z87.891 Personal history of nicotine dependence

== ENCOUNTER 2022-11-27 13:22 | Emergency (ER) | payer BC ==
[~2022-11-27] VITALS: Ht 154.9 cm; Wt 108.9 kg
[2022-11-27 13:36] VITALS: BP 135/86
--- NOTE | 2022-11-27 13:42 | ED Upper Extremity ---
General Chief Complaint: Upper Extremity Stated Complaint: RT SHOULDER AND ARM PAIN | Nursing Triage Note: PT AMB TO RM 3 WITH C/O R SHOULDER PAIN. PT STATES THAT THE PAIN INCREASED THIS AM BUT HAS BEEN ONGOING FOR ABOUT 2 WEEKS Source: patient Exam Limitations: no limitations (MOHIT MORALES) History of Present Illness Date Seen by Provider: Nov 27, 2022 Time Seen by Provider: 13:42 Initial Comments Patient is a 47-year-old female presents ED with right shoulder pain. Symptoms started 2 weeks ago. 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 She states she has a little boy that always pulling her right arm or tugging or jumping on her right arm. She started having pain of the right shoulder and arm. Pain is worse with any type of movement. Denies any numbness and tingling. She woke up with pain this morning that was worse. Described as dull and achy worse with any movement or moving above the head. She denies any falls. She has been taken ibuprofen. No history of previous surgery. She reports pain with movement of the neck. She denies chest pain, shortness of breath, cough, headache, dizziness, visual changes, sore throat (MOHIT MORALES) Allergies and Home Medications Allergies Coded Allergies: Penicillins (Verified Allergy, Unknown, 08/21/17) Reported by pt. Patient Home Medication List Home Medication List Reviewed: Yes (MOHIT MORALES) Alprazolam (Alprazolam) 1 Mg Tablet, 1 MG PO Q8H PRN for ANXIETY, (Reported) Entered as Reported by: GLADYS GALINDO on 06/17/221516 Aripiprazole (Aripiprazole) 5 Mg Tablet, 5 MG PO DAILY, (Reported) Entered as Reported by: GLADYS GALINDO on 06/17/22 151 Fluoxetine HCl (Fluoxetine HCl) 40 Mg Capsule, 40 MG PO DAILY, (Reported) Entered as Reported by: GLADYS GALINDO on 06/17/22 151 Hydrocodone/Acetaminophen (Hydrocodone-Acetamin 5-325 mg) 5 Mg-325 Mg Tablet, 1 TAB PO Q4H PRN for PAIN-MODERATE (5-7) Prescribed by: STEPHANE CHAHAL on 11/27/22 1425 Losartan Potassium (Losartan Potassium) 50 Mg Tablet, 50 MG PO DAILY, (Reported) Entered as Reported by: GLADYS GALINDO on 06/17/22 1517 Pantoprazole Sodium (Protonix) 40 Mg Tablet.dr, 40 MG PO DAILY, (Reported) Entered as Reported by: JENNIFER RAZA on 07/24/22 1634 Rosuvastatin Calcium (Crestor) 10 Mg Tablet, 10 MG PO DAILY, (Reported) Entered as Reported by: JENNIFER RAZA on 07/24/22 1634 Review of Systems Constitutional: No chills, No diaphoresis, No malaise, No weakness EENTM: No hearing loss, No ear pain, No blurred vision Respiratory: No cough, No dyspnea on exertion Cardiovascular: No chest pain Gastrointestinal: No abdominal pain, No diarrhea, No nausea, No vomiting Genitourinary: No decreased output, No discharge Musculoskeletal: No back pain; joint pain, muscle pain Skin: No change in color, No change in hair/nails (MOHIT MORALES) All Other Systems Reviewed Negative Unless Noted: Yes (MOHIT MORALES) Past Nadadfl-Amzvhw-Lbhzhf Hx Immunizations Up To Date First/Initial COVID19 Vaccinat: YES Second COVID19 Vaccination Luis Felipe: YES Third COVID19 Vaccination Date: YES (MOHIT MORALES) Seasonal Allergies Seasonal Allergies: Yes (MOHIT MORALES) Past Medical History Surgery/Hospitalization HX: ROSHAN C SECTION X2 hyst Surgeries: Yes ( X2) Gallbladder, Hysterectomy Respiratory: Yes (WAITING TO GET CPAP) Sleep Apnea Cardiac: Yes (PVC's) High Cholesterol, Hypertension, Irregular Heartbeat Neurological: Yes Headaches /Migraines Reproductive Disorders: No MANAGER DIVERSITY History: Hysterectomy Sexually Transmitted Disease: No HIV/AIDS: No Genitourinary: No Gastrointestinal: Yes (RECTOCELE) Gastroesophageal Reflux, Chronic Diarrhea Musculoskeletal: No Endocrine: No Loss of Vision: Bilateral Hearing Impairment: Denies Cancer: No Psychosocial: Yes Anxiety, Depression Integumentary: No Blood Disorders: No Adverse Reaction/Blood Tranf: No (N/A) (MOHIT MORALES) Family Medical History Diabetes mellitus 19 MOTHER Heart Disease (MOHIT MORALES) Physical Exam Vital Signs Vital Signs - First Documented 11/27/22 13:36 Temp 36.7 Pulse 101 Resp 14 B/P (MAP) 135/86 (102) Pulse Ox 96 O2 Delivery Room Air (LORI SINGH MD) Vital Signs Capillary Refill : (MOHIT MORALES) Height, Weight, BMI Height: 5'1.00" Weight: 194lbs. 0.0oz. 87.003709bz; 45.00 BMI Method:Stated General Appearance: WD/WN, no apparent distress HEENT: PERRL/EOMI, normal ENT inspection, TMs normal, pharynx normal Neck: non-tender, full range of motion, supple Cardiovascular: regular rate, rhythm, no edema, no gallop, no JVD Respiratory: chest non-tender, lungs clear, normal breath sounds, no respiratory distress Gastrointestinal: normal bowel sounds, soft Back: normal inspection, no CVA tenderness Shoulder: limited ROM (Limited passive range of motion the right shoulder. Pain above 30 degrees. Positive Neer's test. Pain with internal and external rotation strength 5 out of 5. Pain with empty can test without any weakness. Negative speeds test. No shoulder tenderness on palpation. Industrial Equipment Mechanic strength 5-5) Elbow/Forearm: normal inspection, non-tender, no evidence of injury, Right Wrist: Yes normal inspection, Yes non-tender, Yes normal ROM Hand: normal inspection, non-tender, Right Neurologic/Tendon: normal sensation, normal motor functions Neurologic/Psychiatric: program advocate II-XII nml as tested, no motor/sensory deficits, alert, normal mood/affect Skin: normal color, warm/dry (MOHIT MORALES) Progress/Results/Core Measures Results/Orders Blood Pressure Mean: 102 Departure Communication (PCP) Patient is a 47-year-old female presents ED with right shoulder pain. Injury at work two weeks ago. 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 She states a little boy pulls and tugs on her right shoulder multiple leatha. Pain is worse today and pain is worse with any type of movement especially away from the body. Denies of any popping or locking or obvious weakness. She gets relief when she holds her shoulder close to her body. Has been taken anti-inflammatories. Exam was concerning for subacromial bursitis versus tendinitis of the shoulder. Low suspicion for rotator cuff tear. She does seem to have adequate strength but does have pain with certain range of motion. X-ray was performed which did not note any acute abnormality. She denies of any chest pain or shortness of breath. Patient does not appear toxic or septic. She did receive a dose of hydrocodone. At this time will discharge with few days worth of pain medication. Recommend continue with ibuprofen. Recommend range of motion exercises which was provided. Suggest continue with your anti-inflammatories. Orthopedic outpatient follow-up. Would likely benefit with physical therapy. If any worsening symptoms return back to ED for further evaluation. (MOHIT MORALES) Impression Primary Impression: Shoulder sprain Disposition: HOME, SELF-CARE Condition: Stable Departure-Patient Inst. Decision time for Depature: 14:20 (MOHIT MORALES) Referrals: YASMEEN FITCH MD (PCP/Family) Primary Care Physician RUKHSANA ROBERTSON MD Patient Instructions: Shoulder Sprain (DC) Add. Discharge Instructions: Recommend range of motion exercises. Provide a few days worth of pain medication. Orthopedic outpatient follow-up. All discharge instructions reviewed with patient and/or family. Voiced understanding. Scripts Hydrocodone/Acetaminophen (Hydrocodone-Acetamin 5-325 mg) 5 Mg-325 Mg Tablet 1 TAB PO Q4H PRN for PAIN-MODERATE (5-7), #6 TAB Prov: MOHIT MORALES 11/27/22 Work/School Note: Work Release Form Date Seen in the Emergency Department: Nov 27, 2022 Return to Work: Nov 29, 2022 ATTENDING PHYSICIAN NOTE: I was physically present as attending physician in the emergency department during the care of this patient, but I was not directly involved in the decision making or delivery of care for this patient. (LORI SINGH MD) MOHIT MORALES Nov 27, 2022 13:42 LORI SINHG MD Nov 28, 2022 17:24
[2022-11-27] MEDS ORDERED: HYDROcodone/ACETAMINOPHEN 5 MG/325 MG TABLET PO ONE (13:45)
--- NOTE | 2022-11-27 13:57 | Diagnostic Imaging Report ---
HISTORY: Right shoulder pain after injury. TECHNIQUE: Three views of the right shoulder. COMPARISON: None. FINDINGS: No acute fracture is seen in the right shoulder. Alignment is normal. There is mild degenerative change in the right acromioclavicular joint. IMPRESSION: 1. No acute osseous abnormality is seen in the right shoulder. Dictated by: Dictated on workstation # [id number]
[2022-11-27] MEDS ORDERED: ACHD5005 PO (14:25)
== END 2022-11-27 14:26 | disposition home or self-care (01) ==
LOC: EDUNIT# 13:22 → ER 13:24
DX: S43.401A Unspecified sprain of right shoulder joint, initial encounter (principal); X58.XXXA Exposure to other specified factors, initial encounter; Y92.218 Other school as the place of occurrence of the external cause; Y99.0 Civilian activity done for income or pay
CPT/HCPCS: 73030

== ENCOUNTER → 2022-12-02 | Outpatient (CLI) | payer BC ==
--- NOTE | 2022-12-02 09:36 | Diagnostic Imaging Report ---
Clinical indications: Patient with submental mass. Exam: Focused ultrasound neck soft tissue midline submental region. Comparisons: None. Findings and impression: 1: There is a benign-appearing lymph node in the midline submental region of concern which measures 6 mm x 4 mm x 5 mm. 2: There is no other significant abnormality seen on this exam. There is no fluid collection seen. Dictated by: Dictated on workstation # [id number]
--- NOTE | 2022-12-02 14:12 | Diagnostic Imaging Report ---
INDICATION: Routine screening. COMPARISON: 12/13/2016. TECHNIQUE: 2D and 3D bilateral screening mammography was performed with CAD. FINDINGS: Scattered fibroglandular densities are identified bilaterally. Benign nodules in both breasts appear stable. No new mass or malignant-appearing microcalcifications are seen. The axillae are unremarkable. IMPRESSION: No mammographic features suspicious for malignancy are identified. ACR BI-RADS Category 2: Benign findings. Result letter will be mailed to the patient. Note: At least 10% of breast cancer is not imaged by mammography. Dictated by: Dictated on workstation # [id number]
== END ==
LOC: RAD 08:14
PROVIDERS: ATTEND Family Medicine
DX: Z12.31 Encounter for screening mammogram for malignant neoplasm of breast (principal); R22.1 Localized swelling, mass and lump, neck
CPT/HCPCS: 76536; 77063; 77067